=== PATIENT | female | born 1950 | race African-American/Black ===

== ENCOUNTER 2016-09-01 13:31 | Inpatient (IN) | payer OTHER ==
[~2016-09-01] VITALS: Ht 165.1 cm; Wt 123.6 kg
[2016-09-01] VITALS (25 sets, daily range): BP systolic 84–165; BP diastolic 45–141
--- NOTE | ~2016-09-01 | HC ---
[facility] [place] [address] CONSULTATION Name: TOY WELDON Room #: 243-P ADM IN M.R.#: [id number] Admission: 09/01/16 Attend Phys: Ismael Meyers Discharge: Date of : 54 Report #: [id number] THIS REPORT FOR: //name// CC: Jose Britt [facility] physician/PCP DATE OF SERVICE: 09/01/2016 REFERRING PROVIDER: Jose Britt MD REASON FOR CONSULTATION: Respiratory failure. CHIEF COMPLAINT: Altered mental status. HISTORY OF PRESENT ILLNESS: Our group was asked to evaluate this patient while hospitalized at [facility] in the ICU. She was seen in the ICU this evening. She is unable to give any history due to being on the mechanical ventilator and being unresponsive. The family immediately available at this time and scant records available from the emergency department. Apparently a 65-year-old woman who was brought to our emergency department from [facility] with altered mental status. Currently has also recently been started on hemodialysis. Has a tunneled right-sided chest catheter for hemodialysis, unclear how long that has been present, the underlying etiology of it. Currently, has also history of cerebrovascular accident with some right-sided weakness again presented with altered mental status in the emergency department. A CT scan of the chest revealed only some posterior basilar infiltrates and/or atelectasis. This appeared to be scant in nature. CT of the head was unrevealing for any acute process, although findings of old infarct noted. She has been in the ICU and poorly responsive despite no sedating medications at this time. ALLERGIES: METFORMIN. CURRENT MEDICATIONS: As an outpatient include armodafinil, aspirin, atorvastatin, carvedilol, DuoNebs, insulin, Keppra, lisinopril, midodrine, folic acid, Renvela, tamsulosin, Zoloft. PAST MEDICAL HISTORY: 1. Cerebrovascular accident with some right hemiparesis. 2. History of end-stage kidney disease, on hemodialysis. 3. Probable seizure disorder. 4. Hypertension. SOCIAL HISTORY: Unobtainable due to current status. [facility] [address] [place] [address] CONSULTATION Name: TOY WELDON Room #: 243-P [facility] IN .R.#: [id number] Admission: 09/01/16 Attend Phys: Ismael Meyers Discharge: Date of : 54 Report #: [id number] FAMILY HISTORY: Unobtainable due to current status. REVIEW OF SYSTEMS: Unobtainable due to her current status. PHYSICAL EXAMINATION: VITAL SIGNS: Temperature is 38.1, pulse 130s, respiratory rate 18, blood pressure 88/45. GENERAL: This is an obese, elderly black female, unresponsive. ENT: Endotracheal tube in place. CHEST: Reveals a right-sided Port-A-Cath as well as a tunneled right-sided catheter for dialysis, left IJ triple lumen of it. LUNGS: Relatively clear. No wheezes or crackles noted. CARDIOVASCULAR: Heart was regular. No murmurs noted. ABDOMEN: Soft, nontender, no masses. EXTREMITIES: Warm with no significant edema. LABORATORY DATA: CT scan as described. Marked elevation of the left hemidiaphragm also appreciated. White blood cell count was 9.7, hemoglobin 8, hematocrit 25, platelet count 129. Sodium 132, potassium 4.5, chloride 100, bicarbonate 27, BUN 29, creatinine 6.1, glucose 106, troponin is normal. IMPRESSION: 1. Altered mental status of unclear etiology. Cerebrovascular accident should still be considered in the differential diagnosis. Would also consider the possibility of early sepsis. She has multiple potential sources including pneumonia or line infections from her tunneled dialysis catheter, her Port-A-Cath. 2. Possible gastrointestinal bleed, coffee ground appearing substance coming from orogastric tube as well as low hemoglobin on admission noted. Would repeat hemoglobin and follow. 3. Anemia may be related to #2 above or underlying renal failure. 4. Chronic renal insufficiency, unclear how long she had been on hemodialysis. 5. Acute respiratory failure, likely due to altered mental status. Adequate support on current ventilator settings with good minute volume. 6. History of hypertension. SUGGEST: 1. Continue with current antibiotic therapy. 2. Consultation with Nephrology. 3. Bronchodilators. 4. Await cultures. 5. Repeat CBC to reevaluate anemia. 6. ICU care. 7. Additional recommendations to follow. [address] [address] CONSULTATION Name: WHITNEY AVILESYULIATOY Vinay Room #: 243-P [facility] IN M.R.#: [id number] Admission: 09/01/16 Attend Phys: Ismael Meyers Discharge: Date of : 54 Report #: [id number] Thank you for requesting our suggestions. <ELECTRONICALLY SIGNED> By: Lionel Velazquez MD 09/04/16 1434 2131 0040 Lionel Velazquez MD /nt
--- NOTE | ~2016-09-01 | P ---
[facility] [place] [address] PROCEDURE REPORT Name: TOY WELDON Room #: 243-P ADM IN M.R.#: [id number] Admission: 09/01/16 Attend Phys: Ismael Meyers Discharge: Date of : 54 Report #: [id number] THIS REPORT FOR: //name// CC: Jose Britt [facility] physician/PCP Hayden Red MD DATE OF SERVICE: 09/02/2016 PROCEDURE PERFORMED: Upper endoscopy. HISTORY OF PRESENT ILLNESS: The patient is a 65-year-old female who is living in a half-way, who apparently had altered mental status. She is currently in the ICU on a ventilator with pressure support. OG tube was placed last night with bright red blood aspirated, nursing reported approximately 200 mL. Plan is for emergent upper endoscopy. The patient is hypertensive and she is septic with blood culture being positive. She is on pressure support at this time and is being sedated with propofol. DESCRIPTION OF PROCEDURE: The procedure needed be done emergently. I was unable to obtain consent from her daughter this morning. The procedure was performed in the ICU. Again, the patient is already sedated on propofol at this time. Her G-tube was removed. Next, using a standard Fujinon upper endoscope, the scope was placed in the patient's mouth and advanced under direct vision through the esophagus, stomach and into the second portion of the duodenum. The esophagus was normal throughout. The GE junction was normal. The fundus was normal. However, in the mid body, several linear ulcerations were noted as well as gastritis. There was no active bleeding, but the area was very friable. No visible vessels were seen. There was no blood within the stomach. The gastric antrum was normal. The pylorus was normal and patent. The duodenal bulb, first and second portion were all normal. I did not obtain biopsies today as it is unclear if the patient has been on recent anticoagulation therapy. At this point, a new OG was placed under endoscopic vision. The scope was then withdrawn, leaving the OG tube in place. The procedure was then terminated. The patient tolerated the procedure well. IMPRESSION: 1. Several linear gastric ulcers in the mid body of the stomach. I do not think this is secondary to NG trauma as the tube was just placed plus there were multiple areas as well as not having ulceration within the fundus. 2. Otherwise, normal upper endoscopy. [address] [address] PROCEDURE REPORT Name: TOY WELDON Room #: 243-P [facility] IN M.R.#: [id number] Admission: 09/01/16 Attend Phys: Ismael Meyers Discharge: Date of : 54 Report #: [id number] RECOMMENDATIONS: 1. Continue OG suction. 2. Continue PPI drip. 3. Continue to monitor hemoglobin closely. 4. We will recheck a stool H. pylori antigen test. Thank you for allowing me to participate in her care. <ELECTRONICALLY SIGNED> By: Mitesh Veloz MD 09/05/16 0829 1128 1213 Mitesh Veloz MD /nt
--- NOTE | ~2016-09-01 | H ---
[facility] [place] [address] HISTORY AND PHYSICAL Name: TOY WELDON Room #: 243-P ADM IN M.R.#: [id number] Admission: 09/01/16 Attend Phys: Ismael Meyers Discharge: Date of : 54 Report #: [id number] THIS REPORT FOR: //name// CC: Dakota Britt [facility] physician/PCP DATE OF SERVICE: 09/01/2016 HISTORY OF PRESENT ILLNESS: A 65-year-old female with history of stroke and renal failure, who was found to have altered mental status and was sent out of the shelter. She is a patient over at [place], has not been there that long, just a few days when they noted that she has had a change in status with increasing shortness of breath, lethargic. Really no other history from the patient. She then was sent here where intubation occurred. PAST MEDICAL HISTORY: Her past history is noteworthy for the right-sided weakness. She has renal failure. She has end-stage renal disease, on dialysis. History of seizure disorder. The rest of the history really is not available to me. PHYSICAL EXAMINATION: GENERAL: On examination, she is in the ICU, intubated, just had an EGD accomplished. She was lethargic. CHEST: Showed coarse breath sounds. CARDIOVASCULAR EXAMINATION: Showed a regular rate and rhythm. ABDOMEN: Soft and nontender. EXTREMITIES: Negative. ASSESSMENT AND PLAN: This is a 65-year-old female with history of stroke and end-stage renal disease who has altered mental status and respiratory failure. Etiology is most likely infectious. We will see what the study shows, but full support in the ICU is begun. By: 1121 1151 Dakota Britt MD /nt
--- NOTE | ~2016-09-01 | EKG ---
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 : 1950 Requested By: Vick Gar Order Number: [id number] MD: Audie Smith Measurements Intervals [place] Rate: 130 P: -66 ID: 128 QRS: -56 QRSD: 101 T: 67 QT: 331 QTc: 487 Interpretive Statements Sinus or ectopic atrial tachycardia left anterior hemiblock Poor precordial R wave progression No previous ECG available for comparison Electronically Signed On 09-02-2016 15:17:49 CDT by Audie Smith [email or web address] <ELECTRONICALLY SIGNED> By: Audie Smith MD, [facility] 09/02/16 1517 1257 1257 Audie Smith MD, FAC /EPI
--- NOTE | ~2016-09-01 | HC ---
[facility] [place] [address] CONSULTATION Name: TOY WELDON Room #: 243-P ADM IN M.R.#: [id number] Admission: 09/01/16 Attend Phys: Ismael Meyers Discharge: Date of : 54 Report #: [id number] THIS REPORT FOR: //name// CC: Dakota Britt [facility] physician/PCP HISTORY OF PRESENT ILLNESS: The patient is a 65-year-old -[place] woman residing in a local [facility] with history of renal failure, on chronic hemodialysis and past history of cerebrovascular accident who was found by nursing to have some altered mental status. She is brought to the Emergency Room and now in the ICU, intubated to protect her airways. Nursing reports one of her blood cultures been returned positive. All information on this patient is gathered from the review of records. PAST MEDICAL HISTORY: Cerebrovascular accident, right hemiparesis, renal failure, on hemodialysis through right-sided tunnel internal jugular dialysis catheter. She has a right-sided Port-A-Cath as well. Seizure disorder. FAMILY HISTORY: Unable to obtain. SOCIAL HISTORY: Unable to obtain. REVIEW OF SYSTEMS: Unable to obtain. DRUG ALLERGIES: METFORMIN. MEDICATIONS: The patient is currently on treatment with Levophed titration, vancomycin 750 mg post-hemodialysis 3 times weekly has received a loading dose of 2 grams of vancomycin in the Emergency Room yesterday, she is on p.r.n., ondansetron, pantoprazole 80 mg IV x 1, p.r.n. morphine sulfate. She has apparently received Zosyn 4.5 grams IV x 1 as well. PHYSICAL EXAMINATION: GENERAL: Obese woman and on mechanical ventilator, intubated through oral cavity. VITAL SIGNS: Temperature maximum since admission 100.5, pulse per minute, respirations 16-28 per minute, blood pressure 146/60, 86/44. She is also on Levophed drip. HEENT: Head normocephalic and atraumatic. Pupils small, reactive. Mouth: Unable to examine. NECK: Supple. CHEST: Right-sided Port-A-Cath, and tunneled dialysis catheter. LUNGS: Basilar crackles. HEART: S1, S2. No gallop. ABDOMEN: Obese, soft with left-sided colostomy, functioning properly, multiple surgical scars and abdomen. PELVIC AND RECTAL: Deferred. [facility] [address] [place] [address] CONSULTATION Name: TOY WELDON Room #: 243-P ADM IN .R.#: [id number] Admission: 09/01/16 Attend Phys: Ismael Meyers Discharge: Date of : 54 Report #: [id number] EXTREMITIES: No clubbing, cyanosis. NEUROLOGIC: Unable to evaluate. LABORATORY DATA: Sodium 132, potassium 4.5, BUN 29, creatinine 6.1, glucose 100. Liver enzymes normal, albumin admission 3.1, down to 2.8 g/dL today. WBC 11,400, hemoglobin 7.3 g/dL, platelets decreased today 134,000. White blood cell count differential yesterday revealed 78% segmented neutrophils, 16% lymphocytes. Urinalysis reveals specific gravity of 1.020, pH 7.5, 2+ protein, 2+ blood, positive nitrite. The microscopic exam revealed pyuria as well as bacteriuria. ABGs yesterday revealed pH 7.37, pCO2 44, pO2 220, bicarbonate 25. Lactate normal. These set of gases on FIO2 of 60%, tidal volume 500 and 5 of PEEP. MICROBIOLOGY DATA: Blood cultures were obtained on admission and one out of two samples revealed gram-positive cocci consistent with Staphylococcus species, the urine culture is pending at the time of this dictation. RADIOLOGY EVALUATION: CT scan of the head was obtained and revealed old infarcts with areas of nonspecific low density, possibly of chronic ischemic changes. CT scan of the chest PE protocol, limited study, atelectasis, infiltrate posteriorly in the lungs. Elevation left hemidiaphragm. Chest x-ray revealed left IJ catheter and development of increased atelectasis right lung. ASSESSMENT: 1. Altered mental status, undetermined etiology. 2. Rule out catheter sepsis. 3. History of cerebrovascular accident. 4. Renal failure on hemodialysis through a right-sided tunneled internal jugular venous catheter. 5. Morbid obesity. 6. Status post colostomy. SUGGESTIONS: Recommend continue treatment with vancomycin, Zosyn 2.25 grams IV every 8 hours. Streamline antibiotic regimen once culture results available. Dr. Britt thank you for requesting my suggestions. <ELECTRONICALLY SIGNED> By: Hayden Maciel MD 09/03/16 1136 0615 1025 Hayden Maciel MD /nt
--- NOTE | ~2016-09-01 | D ---
[facility] [place] [address] DISCHARGE SUMMARY Name: TOY WELDON Room #: 243-P ADM IN M.R.#: [id number] Admission: 09/01/16 Attend Phys: Ismael Meyers Discharge: Date of : 54 Report #: [id number] THIS REPORT FOR: //name// CC: Dakota Britt [facility] physician/PCP FINAL DIAGNOSES: 1. Sepsis. 2. Acute hypoxic respiratory failure. 3. End-stage renal disease. 4. Cerebrovascular disease. 5. Gastrointestinal bleed. 6. Complicated urinary tract infection. 7. Acute encephalopathy. HOSPITAL COURSE: The patient was admitted from the group home with altered mental status. She was diagnosed with a complicated UTI and sepsis. She developed hypoxic respiratory failure and required intubation. Please see those procedure and consultation notes. She was followed by multiple specialties. Ultimately, her situation stabilized and she was extubated. She failed a bedside swallow with Speech Therapy and they recommended alternative feedings until she was stronger participating with therapy. She received hemodialysis without incident. DISPOSITION: She will be transferred to [facility] facility for ongoing Dobhoff tube feeding, bedside hemodialysis, medical management of all her conditions and therapies. She will admit under the care of Dr. Jose Britt. I signed all the transfer orders and information. <ELECTRONICALLY SIGNED> By: Yovani De Los Santos MD 09/07/16 1434 1308 1349 Yovani De Los Santos MD /jorge
--- NOTE | ~2016-09-01 | HC ---
[facility] [place] [address] CONSULTATION Name: TOY WELDON Room #: 243-P ADM IN M.R.#: [id number] Admission: 09/01/16 Attend Phys: Ismael Meyers Discharge: Date of : 54 Report #: [id number] THIS REPORT FOR: //name// CC: Dakota Britt [facility] physician/PCP DATE OF SERVICE: 09/02/2016 ICU Critical Care Renal Consult REASON FOR CONSULTATION: End-stage renal disease and altered mental status. HISTORY OF PRESENT ILLNESS: This 65-year-old female was admitted from [facility] after developing acute mental status deterioration. She had a recent cerebrovascular accident and has been at [facility] for several weeks. Her mental status apparently deteriorated and she was transferred to the Emergency Room where she was promptly intubated for respiratory failure and airway protection. She was transferred to the Intensive Care Unit. She is maintained on Levophed at this time to support her blood pressure. PAST MEDICAL HISTORY: Remarkable for a cerebrovascular accident approximately 4 months ago. She has longstanding hypertension as well as a chronic seizure disorder. MEDICATIONS: On presentation include armodafinil, aspirin, Lipitor, carvedilol, DuoNeb, Levemir, Keppra, Zestril, ProAmatine, Nephro-Jeannette, Renvela, Flomax and Zoloft. ALLERGIES: Reported to METFORMIN. PERSONAL AND SOCIAL HISTORY, FAMILY HISTORY AND REVIEW OF SYSTEMS: Not obtainable at this time. PHYSICAL EXAMINATION: GENERAL: Reveals a well-developed, well-nourished, moderately obese female who is intubated, mechanically ventilated. She is sedated at this time. VITAL SIGNS: Blood pressure 129/61, pulse 101, temperature 99.1, respirations 14. SKIN: Warm and dry. There is no gross clubbing, cyanosis, edema or adenopathy. HEENT: The head is normocephalic and atraumatic. The sclerae are white. The pharynx is benign. There is an endotracheal tube in place. LUNGS: Lindquist reveal scattered rhonchi bilaterally. CARDIOVASCULAR: Reveals a regular rate and rhythm without rub. ABDOMEN: Soft and nontender, without palpable mass or organomegaly. NEUROLOGIC: Reveals the patient to be essentially unresponsive. She has not responded to painful stimuli at this time. [address] [address] CONSULTATION Name: TOY WELDON Vinay Room #: [address] [place] [address] IN M.R.#: [id number] Admission: 09/01/16 Attend Phys: Ismael Meyers Discharge: Date of : 54 Report #: [id number] LABORATORY STUDIES: Available at the time of consultation include sodium 139, potassium 3.8, chloride 104, CO2 27, BUN 34, creatinine 6.9, glucose 157, calcium 9.3. White blood cell count 11,400, hemoglobin 7.3, hematocrit 22.4, platelet count 134,000. Arterial blood gases on presentation, pH 7.37, pCO2 220, pCO2 44.2 on 60% FIO2 ventilator assisted. ASSESSMENT: 1. End-stage renal disease with satisfactory volume and metabolic parameters at this time for a patient with end-stage renal disease. She has no indications for acute dialysis at this point in time. 2. Altered mental status in the setting of suspected sepsis and respiratory insufficiency with recent cerebrovascular accident. Importantly, I do not believe that her renal dysfunction is contributing significantly to her altered mental status at this time and would see no benefit from emergent hemodialysis for this indication alone. 3. Diabetes mellitus. 4. Hypertension. 5. Status post recent cerebrovascular accident. 6. Respiratory insufficiency, post-intubation. 7. Likely sepsis with 1/2 blood cultures positive for Streptococcus species at this time. PLAN: We will provide the patient with aggressive medical support. Planned dialysis for the morning per her usual Saturday, Saturday, Saturday schedule. Please see orders. Critical care time 45 minutes. <ELECTRONICALLY SIGNED> By: Clint Red MD 09/03/16 1153 0806 1140 Clint Red MD /nt
--- NOTE | ~2016-09-01 | HC ---
[facility] [place] [address] CONSULTATION Name: TOY WELDON Room #: 243-P ADM IN M.R.#: [id number] Admission: 09/01/16 Attend Phys: Ismael Meyers Discharge: Date of : 54 Report #: [id number] THIS REPORT FOR: //name// CC: Jose Britt [facility] physician/PCP Andrea Red MD DATE OF SERVICE: 09/02/2016 HISTORY OF PRESENT ILLNESS: The patient is a 65-year-old female who is brought in from [facility] facility with altered mental status last evening. The patient has been on hemodialysis recently. She also apparently has a history of CVA with right-sided weakness. She is currently intubated and sedated in the ICU. I received a consult early this morning as the patient had an OG placed and bright red blood was aspirated away. There are no family members available at this time to obtain any further history and again the patient is sedated. Her hemoglobin on admission was 8.1. She has had several repeats. Her hemoglobin at this time is 7.3. She has been placed on Protonix drip. Her current OG aspirate is somewhat dark bilious in nature. She is on pressor support at this time for hypertension. She also has grown out a gram positive cocci consistent with strep through her blood culture since admission. She is on IV antibiotics. PAST MEDICAL HISTORY: History of CVA, right hemiparesis, renal failure on hemodialysis, history of seizure disorder. REVIEW OF SYSTEMS: Unobtainable. FAMILY HISTORY: Unobtainable. ALLERGIES: METFORMIN. SOCIAL HISTORY: Unknown. MEDICATIONS: Here at this time: Zosyn, norepinephrine, vancomycin, Zofran, Protonix drip. PHYSICAL EXAMINATION: VITAL SIGNS: Temperature is 99.1, pulse 100, blood pressure 120/60, respiratory rate is 14, O2 sat is 98%. GENERAL: She is sedated. HEENT: Sclerae nonicteric. Oropharynx: OG is in place with dark aspirate. Endotracheal tube also in place. [facility] [address] [place] [address] CONSULTATION Name: TOY WELDON Room #: 243-P ADM IN .R.#: [id number] Admission: 09/01/16 Attend Phys: Ismael Meyers Discharge: Date of : 54 Report #: [id number] NECK: Supple. CARDIOVASCULAR: Regular rhythm, tachycardic at 105. CHEST: With decreased breath sounds bilaterally. ABDOMEN: Soft, nondistended, positive bowel sounds. EXTREMITIES: No cyanosis, clubbing or edema. LABORATORY DATA: Sodium 139, potassium 3.8, chloride 104, bicarbonate 27, BUN 34, creatinine 6.9, glucose 157, AST 23, total bilirubin 0.3, alkaline phosphatase 78, ALT is 20, total protein 7.4, albumin 2.8. INR 1.0. WBC is 11.4, hemoglobin 7.3, platelet count is 134. CT of the chest: Somewhat technically limited study because of the patient's respiratory motion, areas of atelectasis and mild infiltrate posteriorly in the lungs, elevation to the left diaphragm, indeterminate low density in the left kidney, possible artifact. CT scan of the head: Old infarcts with areas of nonspecific low density in the brain, possible chronic leukomalacia or chronic ischemic change. Subacute infarct is not excluded. No hemorrhage. ASSESSMENT AND PLAN: Upper gastrointestinal bleed, unable to obtain history at this time. The patient has had a recent cerebrovascular accident, unclear if she has been on recent anticoagulation therapy. She had approximately 200 mL out per nursing last evening of her OG. I would recommend proceeding with an upper endoscopy emergently today, especially as the patient has , although this may be from sepsis, need to rule out active upper gastrointestinal bleed. Would continue PPI drip. Thank you for allowing me to participate in her care. <ELECTRONICALLY SIGNED> By: Mitesh Veloz MD 09/05/16 0829 1125 1223 Mitesh Veloz MD /nt
[2016-09-01 13:48] LABS: BASOPHILS 0.7 % (0.0-2.0); EOSINOPHILS 0.6 % (0.0-3.0); HEMATOCRIT 24.8 % (37.0-47.0); HEMOGLOBIN 8.1 gm/dL (12.0-15.0); MCH 31.3 pg (26.0-34.0); MCHC 32.4 g/dL (28.0-37.0); MCV 96.6 fL (80.0-100.0); MONOCYTES 10.8 % (1.0-8.0); PLATELET COUNT 129 thou/uL (150-400); POLYS 71.9 % (36.0-66.0); RBC 2.57 mil/uL (4.20-5.00); RDW 17.5 % (10.5-14.5); WBC 9.7 thou/uL (4.0-11.0)
[2016-09-01 13:49] LABS: MANUAL DIFF NO
[2016-09-01 14:05] LABS: ANION GAP 5 mmol/L (7-16); BUN 29 mg/dL (7-18); CALCIUM 9.9 mg/dL (8.5-10.1); CHLORIDE 100 mmol/L (98-107); CO2 27 mmol/L (21-32); CREATININE 6.1 mg/dL (0.6-1.3); GLUCOSE 106 mg/dL (70-99); POTASSIUM 4.5 mmol/L (3.5-5.1); SODIUM 132 mmol/L (136-145)
[2016-09-01 14:09] LABS: ALBUMIN 3.1 g/dL (3.4-5.0); ALKALINE PHOSPHATASE 78 U/L (46-116); SGOT 23 U/L (15-37); SGPT 20 U/L (30-65); TOTAL BILIRUBIN 0.3 mg/dL (<0.1-1.0); TOTAL PROTEIN 7.4 g/dL (6.4-8.2); TROPONIN-I < 0.04 ng/mL (<0.04-0.07)
[2016-09-01] MEDS ORDERED: ARMODAFINIL150 MG PO (15:09)
[2016-09-01] MEDS ORDERED: ATORVASTATIN CA40 MG PO (15:10)
[2016-09-01] MEDS ORDERED: ASPIRIN325 PO (15:10)
[2016-09-01] MEDS ORDERED: COREG3.125 MG PO (15:10)
[2016-09-01 15:20] LABS: URINE BILIRUBIN NEGATIVE (Negative); URINE BLOOD 2+ (Negative); URINE COLOR YELLOW; URINE GLUCOSE-RANDOM* NEGATIVE (Negative); URINE KETONES NEGATIVE (Negative); URINE LEUKOCYTES-REFLEX 2+ (Negative); URINE PROTEIN (DIPSTICK) 2+ (Negative); URINE UROBILINOGEN 0.2 E.U./dl (0.2-1.0)
[2016-09-01] MEDS ORDERED: DUONEB 2.5-0.5 M3 ML INH (15:27)
[2016-09-01] MEDS ORDERED: LEVEMIR SUBQ (15:28)
[2016-09-01] MEDS ORDERED: LISINOPRIL20 MG PO (15:29)
[2016-09-01] MEDS ORDERED: KEPPRA 500 MG500 M2 PO (15:29)
[2016-09-01 15:30] LABS: CASTS None Seen /LPF (None Seen); CRYSTALS None Seen /LPF (None Seen); SQUAMOUS None Seen /LPF (0-3); URINE RBC 0-2 Rare /HPF (0-2)
[2016-09-01] MEDS ORDERED: MIDODRINE HCL 55 M1 PO (15:30)
[2016-09-01] MEDS ORDERED: RENAL VITAMIN0.8 MG PO (15:31)
[2016-09-01] MEDS ORDERED: RENVELA800 MG PO (15:32)
[2016-09-01] MEDS ORDERED: FLOMAX0.4 MG PO (15:33)
[2016-09-01] MEDS ORDERED: SERTRALINE HCL50 MG PO (15:37)
[2016-09-01 15:47] LABS: ABG SAMPLE TYPE ARTERIAL; BE(vivo) -0.3 mmol/L (-2 to +3); LACTATE 0.91 mmol/L (0.5-2.0); O2(CT) 12.2 mL/dL (15.0-23.0); O2Hb 98.4 % (92.0-98.0); PCO2 44.2 mmHg (35.0-45.0); PO2 220.4 mmHg (80.0-100.0); pH 7.371 (7.360-7.450); sO2 99.4 % (92.0-98.0); tCO2 26.4 mmol/L (24.0-30.0)
[2016-09-01 15:48] LABS: STICK SITE L.BRACHIAL
[2016-09-01 15:55] LABS: TIDAL VOLUME 500 ml
[2016-09-01 22:46] LABS: HEMATOCRIT 21.8 % (37.0-47.0); HEMOGLOBIN 7.2 gm/dL (12.0-15.0); MCH 31.4 pg (26.0-34.0); MCHC 33.1 g/dL (28.0-37.0); MCV 94.7 fL (80.0-100.0); RBC 2.3 mil/uL (4.20-5.00); RDW 17.3 % (10.5-14.5); WBC 7.8 thou/uL (4.0-11.0)
[2016-09-02] VITALS (91 sets, daily range): BP systolic 55–146; BP diastolic 16–78
[2016-09-02 01:50] LABS: HEMATOCRIT 22.1 % (37.0-47.0); HEMOGLOBIN 7.2 gm/dL (12.0-15.0); MCH 30.7 pg (26.0-34.0); MCHC 32.5 g/dL (28.0-37.0); MCV 94.6 fL (80.0-100.0); RBC 2.34 mil/uL (4.20-5.00); RDW 17.1 % (10.5-14.5); WBC 11.7 thou/uL (4.0-11.0)
[2016-09-02 03:01] LABS: PROTIME 10.4 Seconds (9.3-11.4)
[2016-09-02 05:44] LABS: HEMATOCRIT 22.4 % (37.0-47.0); HEMOGLOBIN 7.3 gm/dL (12.0-15.0); MCHC 32.6 g/dL (28.0-37.0); MCV 95.1 fL (80.0-100.0); RBC 2.36 mil/uL (4.20-5.00); WBC 11.4 thou/uL (4.0-11.0)
[2016-09-02 05:55] LABS: ALBUMIN 2.8 g/dL (3.4-5.0); CALCIUM 9.3 mg/dL (8.5-10.1); CREATININE 6.9 mg/dL (0.6-1.3); MAGNESIUM 1.8 mg/dL (1.8-2.4); PHOSPHORUS 4.1 mg/dL (2.5-4.9); POTASSIUM 3.8 mmol/L (3.5-5.1)
[2016-09-03] VITALS (99 sets, daily range): BP systolic 73–148; BP diastolic 26–89
[2016-09-03 04:34] LABS: MCH 31.2 pg (26.0-34.0); RBC 2.01 mil/uL (4.20-5.00)
[2016-09-03 04:36] LABS: MCHC 32.6 g/dL (28.0-37.0); MCV 95.7 fL (80.0-100.0); PLATELET COUNT 103 thou/uL (150-400); RDW 16.8 % (10.5-14.5); WBC 12.2 thou/uL (4.0-11.0)
[2016-09-03 04:51] LABS: ALBUMIN 2.5 g/dL (3.4-5.0); CALCIUM 9.1 mg/dL (8.5-10.1); CREATININE 7.8 mg/dL (0.6-1.3); PHOSPHORUS 4.8 mg/dL (2.5-4.9); POTASSIUM 3.8 mmol/L (3.5-5.1); TOTAL BILIRUBIN 0.4 mg/dL (<0.1-1.0); TOTAL PROTEIN 6.1 g/dL (6.4-8.2)
[2016-09-03 04:59] LABS: HEMOGLOBIN 6.3 gm/dL (12.0-15.0); MANUAL DIFF YES
[2016-09-03 05:00] LABS: HEMATOCRIT 19.3 % (37.0-47.0)
[2016-09-03 05:23] LABS: ABG COMMENT AC; ABG SAMPLE TYPE ARTERIAL; BE(vivo) -0.9 mmol/L (-2 to +3); LACTATE 1.04 mmol/L (0.5-2.0); PCO2 35.7 mmHg (35.0-45.0); PO2 86.2 mmHg (80.0-100.0); STICK SITE LRA; TIDAL VOLUME 500 ml; pH 7.426 (7.360-7.450); sO2 96.8 % (92.0-98.0)
[2016-09-03 05:48] LABS: ABSOLUTE NEUTROPHILS 9.9 thou/uL (1.4-8.2); TOTAL CELL COUNT 100
[2016-09-03 05:49] LABS: ANISOCYTOSIS 1+; HYPOCHROMASIA SLIGHT; LARGE PLATELETS OCCASIONAL
[2016-09-03 08:26] LABS: % SATURATION 17 % (20-39); IRON 39 ug/dL (50-170); TIBC 224 ug/dL (250-450); UIBC 185 ug/dL
[2016-09-04] VITALS (90 sets, daily range): BP systolic 71–144; BP diastolic 43–125
[2016-09-04 04:37] LABS: ALBUMIN 2.1 g/dL (3.4-5.0); HEMATOCRIT 24.3 % (37.0-47.0); HEMOGLOBIN 7.9 gm/dL (12.0-15.0); MCH 30.3 pg (26.0-34.0); MCHC 32.7 g/dL (28.0-37.0); MCV 92.8 fL (80.0-100.0); PHOSPHORUS 3.3 mg/dL (2.5-4.9); POTASSIUM 3.1 mmol/L (3.5-5.1); RBC 2.62 mil/uL (4.20-5.00); RDW 16.9 % (10.5-14.5); WBC 13.2 thou/uL (4.0-11.0)
[2016-09-04 04:39] LABS: CREATININE 4.5 mg/dL (0.6-1.3)
[2016-09-04 11:18] LABS: ABG SAMPLE TYPE ARTERIAL; BE(vivo) 0.6 mmol/L (-2 to +3); HCO3 25.6 mmol/L (22.0-26.0); LACTATE 0.72 mmol/L (0.5-2.0); O2(CT) 12.8 mL/dL (15.0-23.0); O2Hb 98.6 % (92.0-98.0); PCO2 42.5 mmHg (35.0-45.0); PO2 154.5 mmHg (80.0-100.0); pH 7.397 (7.360-7.450); tCO2 26.9 mmol/L (24.0-30.0)
[2016-09-04 11:19] LABS: Pressure Support 8 cm H20; STICK SITE L.RADIAL; TIDAL VOLUME 525 ml
[2016-09-04 11:20] LABS: ABG COMMENT RSBI 30 / CPAP TRIAL
[2016-09-04 16:14] LABS: ABG SAMPLE TYPE ARTERIAL; BE(vivo) 0.8 mmol/L (-2 to +3); HCO3 26.2 mmol/L (22.0-26.0); O2(CT) 12.3 mL/dL (15.0-23.0); O2Hb 97.2 % (92.0-98.0); PO2 124.3 mmHg (80.0-100.0); pH 7.374 (7.360-7.450); sO2 98.4 % (92.0-98.0); tCO2 27.6 mmol/L (24.0-30.0)
[2016-09-04 16:15] LABS: ABG COMMENT NO COMPLICATIONS.; Face Shield 40 %; STICK SITE L.RADIAL
[2016-09-05] VITALS (90 sets, daily range): BP systolic 70–150; BP diastolic 46–104
[2016-09-05 04:43] LABS: HEMATOCRIT 23.3 % (37.0-47.0); HEMOGLOBIN 7.7 gm/dL (12.0-15.0); MCH 30.8 pg (26.0-34.0); MCHC 33.3 g/dL (28.0-37.0); MCV 92.6 fL (80.0-100.0); RBC 2.51 mil/uL (4.20-5.00); RDW 16.2 % (10.5-14.5); WBC 10.3 thou/uL (4.0-11.0)
[2016-09-05 04:52] LABS: ALBUMIN 2.1 g/dL (3.4-5.0); CALCIUM 9.1 mg/dL (8.5-10.1); CREATININE 5.7 mg/dL (0.6-1.3); PHOSPHORUS 4.8 mg/dL (2.5-4.9); POTASSIUM 3.2 mmol/L (3.5-5.1)
[2016-09-06] VITALS (99 sets, daily range): BP systolic 72–158; BP diastolic 42–115
[2016-09-06 05:10] LABS: HEMATOCRIT 23.2 % (37.0-47.0); HEMOGLOBIN 7.7 gm/dL (12.0-15.0)
[2016-09-07] VITALS (72 sets, daily range): BP systolic 82–140; BP diastolic 44–122
[2016-09-07 05:06] LABS: HEMATOCRIT 24.5 % (37.0-47.0); MCHC 32.7 g/dL (28.0-37.0); MCV 94.8 fL (80.0-100.0); RBC 2.59 mil/uL (4.20-5.00); RDW 15.9 % (10.5-14.5); WBC 8.3 thou/uL (4.0-11.0)
[2016-09-07 05:31] LABS: ALBUMIN 2.2 g/dL (3.4-5.0); CALCIUM 8.9 mg/dL (8.5-10.1); POTASSIUM 3.4 mmol/L (3.5-5.1)
[2016-09-07 05:43] LABS: CREATININE 4.6 mg/dL (0.6-1.3)
[2016-09-07] MEDS ORDERED: ZYVOX600 MG/300 IVPB (09:01)
[2016-09-07] MEDS ORDERED: MIDODRINE HCL 55 M1 PO (09:02)
[2016-09-07] MEDS ORDERED: HUMALOG100 UNIT/1 SUBQ (09:03)
[2016-09-07] MEDS ORDERED: PREVACID 15 MG15 M4 DISSOLVE (09:03)
== END 2016-09-07 19:57 | DRG 871 ==
LOC: ER 13:31 → ICU 15:13 → EROBS 15:13 → ICU 17:02
PROVIDERS: Emergency Medicine; Internal Medicine; Internal Medicine Gastroenterology; Internal Medicine Infectious Disease; Internal Medicine Nephrology; Internal Medicine Pulmonary Disease; Specialist
PROC: 5A1945Z Respiratory Ventilation, 24-96 Consecutive Hours (ICD-10-PCS; principal; 2016-09-01)
PROC: 02HV33Z Insertion of Infusion Device into Superior Vena Cava, Percutaneous Approach (ICD-10-PCS; 2016-09-01)
PROC: B548ZZA Ultrasonography of Superior Vena Cava, Guidance (ICD-10-PCS; 2016-09-01)
PROC: 0DJ08ZZ Inspection of Upper Intestinal Tract, Via Natural or Artificial Opening Endoscopic (ICD-10-PCS; 2016-09-02)
PROC: 0BH17EZ Insertion of Endotracheal Airway into Trachea, Via Natural or Artificial Opening (ICD-10-PCS; 2016-09-03)
PROC: 5A1D60Z (ICD-10-PCS; 2016-09-03)
DX: A41.9 Sepsis, unspecified organism (principal); J96.01 Acute respiratory failure with hypoxia; G93.40 Encephalopathy, unspecified; N18.6 End stage renal disease; R65.21 Severe sepsis with septic shock; N39.0 Urinary tract infection, site not specified; K92.2 Gastrointestinal hemorrhage, unspecified; I12.0 Hypertensive chronic kidney disease with stage 5 chronic kidney disease or end stage renal disease; N17.9 Acute kidney failure, unspecified; I69.951 Hemiplegia and hemiparesis following unspecified cerebrovascular disease affecting right dominant side; G40.909 Epilepsy, unspecified, not intractable, without status epilepticus; D64.9 Anemia, unspecified; E66.01 Morbid (severe) obesity due to excess calories; E11.22 Type 2 diabetes mellitus with diabetic chronic kidney disease; E78.5 Hyperlipidemia, unspecified; D69.6 Thrombocytopenia, unspecified; I95.9 Hypotension, unspecified; R33.9 Retention of urine, unspecified; Z88.8 Allergy status to other drugs, medicaments and biological substances; Z90.49 Acquired absence of other specified parts of digestive tract; Z79.899 Other long term (current) drug therapy; Z99.2 Dependence on renal dialysis
CPT/HCPCS: 10078; 27000; 32100; 85076

== ENCOUNTER 2016-11-14 20:03 | Inpatient (IN) | payer OTHER ==
[~2016-11-14] VITALS: Ht 170.2 cm; Wt 110.7 kg
--- NOTE | ~2016-11-14 | D ---
[facility] [place] [address] DISCHARGE SUMMARY Name: TOY BAKER Room #: 428-P [facility] IN M.R.#: [id number] Admission: 11/15/16 Attend Phys: Yovani De Los Santos MD Discharge: 11/20/16 Date of : 54 Report #: [id number] THIS REPORT FOR: //name// CC: Yovani De Los Santos FINAL DIAGNOSES: 1. Partial small-bowel obstruction. 2. End-stage renal disease. 3. Cerebrovascular disease. 4. Hypertension. 5. Anemia of chronic disease. HOSPITAL COURSE: The patient was admitted from the retirement with nausea and vomiting. A CT was obtained which suggested a partial small-bowel obstruction. She was placed on bowel rest and supportive measures. She received hemodialysis during the course of her stay. Gradually, her symptoms resolved. Follow up KUB was improved. Diet was advanced and she had no other interval complication. DISPOSITION: She will return to [facility]. I will follow her stay there. She will continue diet and activity as tolerated . <ELECTRONICALLY SIGNED> By: Yovani De Los Santos MD 11/20/16 1659 1402 1451 Yovani De Los Santos MD /nt
--- NOTE | ~2016-11-14 | H ---
[facility] [place] [address] HISTORY AND PHYSICAL Name: TOY BAKER Room #: 428-P ADM IN M.R.#: [id number] Admission: 11/15/16 Attend Phys: Yovani De Los Santos MD Discharge: Date of : 54 Report #: [id number] THIS REPORT FOR: //name// CC: Yovani De Los Santos DATE OF SERVICE: 11/15/2016 This is a patient well known to our service with end-stage renal disease who lives at [place], who had nausea and vomiting. HISTORY OF PRESENT ILLNESS: This is a patient well known to our service who has had end-stage renal disease for quite some time. She has had a massive stroke with right hemiparesis and has nausea and vomiting, but she is really not able to give me much in the way of history. PAST MEDICAL HISTORY: Positive for the right hemiparesis and end-stage renal disease, has a history of seizure disorder. MEDICATIONS: List includes Keppra, atorvastatin, midodrine, modafinil, Nephro-Jeannette, Protonix, Sensipar, Zoloft. FAMILY HISTORY: Noncontributory. SOCIAL HISTORY: She lives at [place]. No smoking or alcohol. REVIEW OF SYSTEMS: Not able to be obtained. PHYSICAL EXAMINATION: GENERAL: Shows an ill appearing lady, but she is not acutely ill. She is able to converse with me. HEENT: Otherwise, negative. NECK: Supple, without thyromegaly or adenopathy. CHEST: Clear. CARDIOVASCULAR: Shows a regular rate and rhythm. ABDOMEN: Soft and nontender. EXTREMITIES: Showed no edema. NEUROLOGIC: Showed right hemiparesis. ASSESSMENT AND PLAN: This is a patient, very debilitated who appears to have an ileus and will need dialysis and bowel rest. <ELECTRONICALLY SIGNED> By: Dakota Britt MD 11/17/16 0950 1406 1421 Dakota Britt MD /nt
--- NOTE | ~2016-11-14 | EKG ---
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 : 1950 Requested By: Adama Webster Order Number: [id number] MD: Andrea Maciel Measurements Intervals [place] Rate: 109 P: 230 KS: 151 QRS: 240 QRSD: 104 T: 92 QT: 354 QTc: 477 Interpretive Statements Ectopic atrial tachycardia, unifocal Left anterior fascicular block Anterolateral infarct, old ST elevation, consider inferior injury Baseline wander in lead(s) V6 No previous ECG available for comparison Electronically Signed On 11-15-2016 20:41:28 CDT by Andrea Maciel [email or web address] <ELECTRONICALLY SIGNED> By: Andrea Maciel MD 11/15/16 2041 2346 2346 Andrea Maciel MD /EPI
--- NOTE | ~2016-11-14 | EKG ---
[address] [address] ELECTROCARDIOGRAM REPORT Name: TOY BAKER Room #: 428-P ADM IN M.R.#: [id number] Admission: 11/15/16 Attend Phys: Yovani De Los Santos MD Discharge: Date of : 54 Report #: [id number] THIS REPORT FOR: //name// 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
--- NOTE | ~2016-11-14 | HC ---
[facility] [place] [address] CONSULTATION Name: TOY BAKER Room #: 428-P ADM IN M.R.#: [id number] Admission: 11/15/16 Attend Phys: Yovani De Los Santos MD Discharge: Date of : 54 Report #: [id number] THIS REPORT FOR: //name// CC: Yovani De Los Santos DATE OF SERVICE: 11/15/2016 ATTENDING PHYSICIAN: Yovani De Los Santos MD. REASON FOR CONSULTATION: End-stage renal disease. HISTORY OF PRESENT ILLNESS: The patient is known to our service after an admission at this hospital in August of this year. At that time, she had respiratory failure, VRE bacteremia, possible aspiration. She did well and after a 6-7 day admission, was transferred out. She stays at [facility] and has dialysis there. She is on 3 times weekly dialysis. She had profuse nausea and vomiting yesterday. She was admitted this morning. PAST MEDICAL HISTORY: She has had a very large CVA with right hemiparesis. She has end-stage renal disease. She has a previous colostomy, history of seizure disorder as well. HOME MEDICATIONS: As listed at [facility] include atorvastatin 40 mg daily, Keppra 500 mg b.i.d., midodrine 10 mg before dialysis, modafinil 150 mg daily, Nephro-Jeannette 1 daily, Schneider p.r.n., NovoLog insulin, Protonix 40 mg daily, Sensipar 30 mg daily, Zoloft 50 mg daily. FAMILY HISTORY: Please see old charts. SOCIAL HISTORY: Stays at [facility], has a daughter who is involved. REVIEW OF SYSTEMS: Cannot be taken due to her aphasia. PHYSICAL EXAMINATION: GENERAL: This is a chronically ill-appearing woman. She is awake and alert, sort of indicate responses. SKIN: Unremarkable. SKELETAL: Shows to be well developed, well nourished, but very obese. HEENT: Extraocular movements are full. Vision appears intact. Hearing appears intact. Mucous membranes are moist. Buccal mucosa is benign. NECK: Supple. CHEST: Shows diminished breath sounds at the bases in supine position. HEART: Regular. ABDOMEN: Completely soft and nontender today. Bowel sounds present. Left [facility] [address] [place] [address] CONSULTATION Name: TOY BAKER Room #: 428-P ADM IN .R.#: [id number] Admission: 11/15/16 Attend Phys: Yovani De Los Santos MD Discharge: Date of : 54 Report #: [id number] EXTREMITIES: Show no edema. NEUROLOGIC: Shows a dense right hemiparesis, right facial and fairly complete aphasia. LABORATORY DATA: Includes hemoglobin of 9.5, platelets of 193. Creatinine 3.8, potassium of 4.2. ASSESSMENT AND PLAN: 1. End-stage renal disease. Will continue on 3 times weekly dialysis. Will dialyze today. Fluid volume status looks pretty good. Potassium is reasonably good. In general, conservative dialysis today. 2. Profuse nausea and vomiting seem to be better. 3. Acute cerebrovascular accident with dense right hemiparesis and aphasia. 4. Colostomy. 5. Diabetes mellitus. 6. Seizure disorder, on Keppra. <ELECTRONICALLY SIGNED> By: Clint Red MD 11/19/16 1012 1033 1558 Matthew Magallanes MD /nt
[~2016-11-14 20:03] MED LIST: ARMODAFINIL150 MG PO; ASPIRIN325 PO; ATORVASTATIN CA40 MG PO; COREG3.125 MG PO; DUONEB 2.5-0.5 M3 ML INH; FLOMAX0.4 MG PO; HUMALOG100 UNIT/1 SUBQ; KEPPRA 500 MG500 M2 PO; LEVEMIR SUBQ; LISINOPRIL20 MG PO; MIDODRINE HCL 55 M1 PO; PREVACID 15 MG15 M4 DISSOLVE; RENAL VITAMIN0.8 MG PO; RENVELA800 MG PO; SERTRALINE HCL50 MG PO; ZYVOX600 MG/300 IVPB
[2016-11-14 20:04] VITALS: BP 120/68
[2016-11-14 21:38] LABS: ABSOLUTE NEUTROPHILS 8.5 thou/uL (1.4-8.2); BASOPHILS 0.5 % (0.0-2.0); EOSINOPHILS 0.7 % (0.0-3.0); HEMATOCRIT 29.5 % (37.0-47.0); HEMOGLOBIN 9.5 gm/dL (12.0-15.0); LYMPHOCYTES 15.5 % (24.0-44.0); MANUAL DIFF NO; MCH 30.3 pg (26.0-34.0); MCHC 32.2 g/dL (28.0-37.0); MCV 94.1 fL (80.0-100.0); MONOCYTES 9.3 % (1.0-8.0); PLATELET COUNT 193 thou/uL (150-400); RBC 3.14 mil/uL (4.20-5.00); RDW 17.9 % (10.5-14.5); WBC 11.5 thou/uL (4.0-11.0)
[2016-11-14 21:59] LABS: ANION GAP 11 mmol/L (7-16); BUN 15 mg/dL (7-18); CALCIUM 8.7 mg/dL (8.5-10.1); CHLORIDE 102 mmol/L (98-107); CO2 24 mmol/L (21-32); CREATININE 3.8 mg/dL (0.6-1.0); GLUCOSE 124 mg/dL (74-106); POTASSIUM 4.2 mmol/L (3.5-5.1); SODIUM 137 mmol/L (136-145)
[2016-11-14 22:10] LABS: ALBUMIN 3.1 g/dL (3.4-5.0); ALKALINE PHOSPHATASE 97 U/L (46-116); DIRECT BILIRUBIN < 0.1 mg/dL (<0.1-0.3); NT-PRO BRAIN NAT PEPTIDE 1256 pg/mL (<300); SGOT 34 U/L (15-37); SGPT 15 U/L (30-65); TOTAL BILIRUBIN 0.4 mg/dL (<0.1-1.0); TOTAL PROTEIN 7.5 g/dL (6.4-8.2); TROPONIN-I < 0.04 ng/mL (<0.04-0.07)
[2016-11-15] MEDS ORDERED: ASPIRIN325 PO (00:16)
[2016-11-15] MEDS ORDERED: ATORVASTATIN CA40 MG PO (00:16)
[2016-11-15] MEDS ORDERED: COLACE100 MG PO (00:17)
[2016-11-15] MEDS ORDERED: DUONEB 2.5-0.5 M3 ML INH (00:17)
[2016-11-15] MEDS ORDERED: KEPPRA 500 MG500 M1 PO (00:18)
[2016-11-15] MEDS ORDERED: MICONAZOLE5 GM MC (00:18)
[2016-11-15] MEDS ORDERED: MIDODRINE HCL 55 M1 PO (00:19)
[2016-11-15] MEDS ORDERED: MODAFINIL100 MG PO (00:19)
[2016-11-15] MEDS ORDERED: HYDROCODONE-AP1 EAC6 PO (00:20)
[2016-11-15] MEDS ORDERED: MULTI VITAMIN1 EACH PO (00:20)
[2016-11-15] MEDS ORDERED: NOVOLOG100 UNIT/1 SUBQ (00:21)
[2016-11-15] MEDS ORDERED: SENNA8.6 MG PO (00:22)
[2016-11-15] MEDS ORDERED: PROTONIX40 M1 PO (00:22)
[2016-11-15] MEDS ORDERED: SENSIPAR 30 MG30 M1 PO (00:22)
[2016-11-15] MEDS ORDERED: SERTRALINE HCL50 MG PO (00:23)
[2016-11-15 02:03] VITALS: BP 92/55
[2016-11-15 02:30] VITALS: BP 107/57
[2016-11-15 04:54] VITALS: BP 127/83
[2016-11-15 07:59] VITALS: BP 112/57
[2016-11-15 16:03] VITALS: BP 120/64
[2016-11-15 20:00] VITALS: BP 128/65
[2016-11-16 04:00] VITALS: BP 119/68
[2016-11-16 04:07] LABS: CALCIUM 8.9 mg/dL (8.5-10.1); POTASSIUM 3.5 mmol/L (3.5-5.1)
[2016-11-16 04:08] LABS: HEMATOCRIT 29.9 % (37.0-47.0); HEMOGLOBIN 9.6 gm/dL (12.0-15.0); MCH 30.5 pg (26.0-34.0); MCHC 32.2 g/dL (28.0-37.0); MCV 94.7 fL (80.0-100.0); RBC 3.15 mil/uL (4.20-5.00); RDW 17.6 % (10.5-14.5); WBC 7.3 thou/uL (4.0-11.0)
[2016-11-16 07:18] VITALS: BP 108/60
[2016-11-16 15:20] VITALS: BP 97/72
[2016-11-16 20:00] VITALS: BP 119/87; BP 138/60
[2016-11-17 04:30] VITALS: BP 147/107
[2016-11-17 06:18] LABS: ALBUMIN 2.9 g/dL (3.4-5.0); CALCIUM 9.1 mg/dL (8.5-10.1); POTASSIUM 3.3 mmol/L (3.5-5.1)
[2016-11-17 06:20] LABS: CREATININE 4.5 mg/dL (0.6-1.0)
[2016-11-17 07:35] VITALS: BP 109/63
[2016-11-17 15:18] VITALS: BP 132/67
[2016-11-17 20:00] VITALS: BP 107/61; BP 90/46
[2016-11-17 23:55] VITALS: BP 90/62
[2016-11-18] VITALS (9 sets, daily range): BP systolic 87–125; BP diastolic 53–83
[2016-11-19 04:00] VITALS: BP 97/62
[2016-11-19 08:00] VITALS: BP 96/54
[2016-11-19 15:35] VITALS: BP 104/53
[2016-11-19 20:00] VITALS: BP 113/66
[2016-11-20 04:42] LABS: HEMATOCRIT 27.7 % (37.0-47.0); MCH 30.6 pg (26.0-34.0); MCHC 32.4 g/dL (28.0-37.0); MCV 94.5 fL (80.0-100.0); RBC 2.94 mil/uL (4.20-5.00); RDW 17.9 % (10.5-14.5); WBC 7.5 thou/uL (4.0-11.0)
[2016-11-20 04:56] LABS: ALBUMIN 2.8 g/dL (3.4-5.0); CALCIUM 8.5 mg/dL (8.5-10.1); PHOSPHORUS 4.7 mg/dL (2.5-4.9); POTASSIUM 4.1 mmol/L (3.5-5.1)
[2016-11-20 04:58] LABS: CREATININE 5.8 mg/dL (0.6-1.0)
[2016-11-20 05:04] VITALS: BP 100/52
[2016-11-20] MEDS ORDERED: PEPCID20 MG PO (10:10)
== END 2016-11-20 14:45 | DRG 388 ==
LOC: ER 20:03 → EROBS 11-15 00:51 → 4E 11-15 00:51
PROVIDERS: Internal Medicine Nephrology; Nurse Practitioner
DX: K56.7 Ileus, unspecified (principal); N18.6 End stage renal disease; E44.0 Moderate protein-calorie malnutrition; I69.351 Hemiplegia and hemiparesis following cerebral infarction affecting right dominant side; K56.60 Unspecified intestinal obstruction; I95.89 Other hypotension; E11.22 Type 2 diabetes mellitus with diabetic chronic kidney disease; G40.909 Epilepsy, unspecified, not intractable, without status epilepticus; D63.8 Anemia in other chronic diseases classified elsewhere; E66.01 Morbid (severe) obesity due to excess calories; Z68.38 Body mass index [BMI] 38.0-38.9, adult; I69.320 Aphasia following cerebral infarction; Z99.2 Dependence on renal dialysis; Z93.3 Colostomy status
CPT/HCPCS: 10084; 32100

== ENCOUNTER 2016-11-30 13:45 | Inpatient (IN) | payer OTHER ==
[2016-11-30] VITALS (29 sets, daily range): BP systolic 62–123; BP diastolic 11–112
[~2016-11-30] VITALS: Ht 162.6 cm; Wt 119.3 kg
--- NOTE | ~2016-11-30 | HC ---
[facility] [place] [address] CONSULTATION Name: TOY BAKER Room #: 421-P ADM IN M.R.#: [id number] Admission: 11/30/16 Attend Phys: Yovani De Los Santos MD Discharge: Date of : 54 Report #: [id number] THIS REPORT FOR: //name// CC: Yovani De Los Santos REASON FOR CONSULTATION: I was asked to evaluate concerning sepsis syndrome. HISTORY OF PRESENT ILLNESS: The patient was a 65-year-old who presents from [facility] where she undergoes hemodialysis 3 times a week. She has underlying history of diabetes, stroke, end-stage renal disease, right hemiparesis, seizure disorder and aphasia. She had acute onset of fever associated with hypertension and tachycardia while she was on dialysis. Brought in through the emergency room. She has remained tachycardic. Has received some fluid bolus. She did not complete her full dialysis course. The patient is aphasic but could not communicate some. She states she has malaise without any localizing symptoms. Denies any cough, sputum. Her colostomy has been functioning well. No new decubiti or rashes. PAST MEDICAL HISTORY: End-stage renal disease, diabetes. She got a colostomy. She got expressive aphasia to right hemiparesis following her stroke. ALLERGIES: METFORMIN. MEDICATIONS: As noted on her MAR, now on vancomycin, Zosyn, and micafungin. FAMILY HISTORY AND SOCIAL HISTORY: Otherwise, noncontributory. REVIEW OF SYSTEMS: As noted above, it is noted that she was hospitalized here 2 weeks ago with gastroenteritis type symptoms. No new diagnosis was established at that time. PHYSICAL EXAMINATION: VITAL SIGNS: Maximum temperature was 38.9 degrees. She has remained tachycardic. Blood pressure dropped down in the 90s systolic. GENERAL: She is alert and cooperative. She has a fairly dense right hemiparesis. She is obese. HEENT: She had scar from previous decubiti to her sacrum. No active lesions currently. She does have some skin breakdown in the perineal region. Eyes: Unremarkable. Mouth: Dentition in poor repair. NECK: Supple, no adenopathy. Right chest dialysis catheter. Tunnel was unremarkable. No purulent drainage. She has a right Port-A-Cath just inferior medial to her exit site. LUNGS: Clear. HEART: Regular without murmur. ABDOMEN: Soft, nontender, no hepatosplenomegaly or mass. Her colostomy in the left lower quadrant was unremarkable. EXTREMITIES: Unremarkable. [facility] [address] [place] [address] CONSULTATION Name: TOY BAKER Room #: 421-P ADM IN M.R.#: [id number] Admission: 11/30/16 Attend Phys: Yovani De Los Santos MD Discharge: Date of : 54 Report #: [id number] LABORATORY STUDIES: Creatinine is 2.9, lactate 2.1. Liver function test normal. Hemoglobin 10.2, white count 14.5, 93% segs, 5% lymphs, platelet count 168,000. Chest x-ray relatively clear. She did have some mild left lower lobe changes, but these were better from 2 weeks ago. Blood cultures are pending. Review of previous cultures in August of this year, she had VRE and coag negative staph bacteremia. She did have a left IJ tunneled catheter at one point in time, but now has a right IJ. Unclear how long this has been in place. IMPRESSION: A 65-year-old with previous stroke, end-stage renal disease, diabetes with septic shock that is responding to IV fluids. Source of her infection most likely will be central venous catheter infection, although I am awaiting further data regarding this. Would recommend continuing broad antibiotic coverage pending culture results. May need further imaging of her abdomen, but currently she is having no GI symptoms and her previous CAT scan was a little over 2 weeks ago, which showed no significant issues other than abdominal hernia. It does not appear that she has an incarcerated hernia at this point in time. The patient will remain in intensive care unit overnight and we will reassess following initial resuscitation and culture results. <ELECTRONICALLY SIGNED> By: Donnell Britt MD 12/04/16 1707 1935 2323 Donnell Britt MD /nt
--- NOTE | ~2016-11-30 | HC ---
[facility] [place] [address] CONSULTATION Name: TOY BAKER Room #: 421-P ADM IN M.R.#: [id number] Admission: 11/30/16 Attend Phys: Yovani De Los Santos MD Discharge: Date of : 54 Report #: [id number] THIS REPORT FOR: //name// CC: Yovani De Los Santos REASON FOR CONSULTATION: End-stage renal disease. REASON FOR PRESENTATION: Sent from the dialysis with mental status issues, hypotension. HISTORY OF PRESENT ILLNESS: The patient is not able to provide me with history as she has acute mental status issues. She is a 65-year-old who has been evaluated in August and November by my partner, Dr. Red and Dr. Magallanes. She suffers from end-stage renal disease and dialyzes every Saturday, Saturday and Saturday. She had a cerebrovascular accident in June of this year. This was complicated by hemiparesis, seizure disorder and aphasia. She presented to the emergency room after her dialysis treatment where she was found to be hypotensive and tachycardic. I was consulted to manage her end-stage renal disease issues. She has a right-sided IJ tunneled catheter. She grew gram positive cocci in her blood and ID was consulted accordingly. PAST MEDICAL HISTORY: 1. End-stage renal disease. 2. Status post cerebrovascular accident with significant aphasia and hemiparesis. 3. Colostomy. ALLERGIES: METFORMIN. FAMILY HISTORY: Unobtainable given the patient's mental status. PAST SURGICAL HISTORY: 1. Colostomy. 2. IJ tunneled catheter. REPORTED MEDICATIONS: 1. Atorvastatin. 2. Sensipar. 3. Modafinil. 4. Keppra SOCIAL HISTORY: She resides in the [facility]. No drug or alcohol abuse. REVIEW OF SYSTEMS: Completely unobtainable given the patient's mental status. PHYSICAL EXAMINATION: [facility] [address] [place] [address] CONSULTATION Name: TOY BAKER Room #: 421-P [facility] IN .R.#: [id number] Admission: 11/30/16 Attend Phys: Yovani De Los Santos MD Discharge: Date of : 54 Report #: [id number] VITAL SIGNS: She is lethargic, aphasic, blood pressure is 116/56, she did have a temperature up to 38.9 yesterday. HEAD AND NECK: Right IJ tunneled catheter. Unfortunately, with no sutures in the . CHEST: No crackles. CARDIOVASCULAR: Regular with no rub detected. ABDOMEN: Soft, nontender. EXTREMITIES: Lower extremities, +3 edema. Upper extremities, +3 edema. LABORATORY VALUES: Reviewed. White blood cell count 10.4. Platelets 143. Chemistry from today revealed a sodium 139, potassium of 4.2. Lactic acid was 2.1. IMAGING DATA: Reviewed. ASSESSMENT, IMPRESSION AND PLAN: 1. End-stage renal disease. 2. Gram positive cocci in blood, possibility related to her IJ tunneled catheter. 3. History of stroke. 4. Aphasia. 5. Seizure disorder. 6. Dialysis will be arranged every Saturday, Saturday and Saturday. 7. I discussed with the ER staff yesterday and empiric antibiotics were initiated in the Emergency Room where the patient received a dose of vancomycin and a dose of Zosyn. Currently, ID was consulted in managing her antibiotic. We will arrange for vancomycin every Saturday, Saturday and Saturday with dialysis. 8. She is not requiring any fluids at this point. Blood pressure seems to be stable. 9. Once we have a final identification of the microorganism then we will decide about the IJ tunneled catheter and what to do with it. As of this moment dressing is applied, however, no sutures over the . We will continue to follow along. <ELECTRONICALLY SIGNED> By: Clint Red MD 12/04/16 0607 0550 0743 Lori Keenan MD /nt
--- NOTE | ~2016-11-30 | HC ---
[facility] [place] [address] CONSULTATION Name: TOY BAKER Room #: 421-P [facility] IN M.R.#: [id number] Admission: 11/30/16 Attend Phys: Yovani De Los Santos MD Discharge: 12/11/16 Date of : 54 Report #: [id number] THIS REPORT FOR: //name// CC: Yovani De Los Santos DATE OF SERVICE: 12/05/2016 WOUND CARE CONSULTATION PERSONAL PHYSICIAN: Dr. De Los Santos. CHIEF COMPLAINT: Left thigh ulcer and right heel ulcer. HISTORY OF PRESENT ILLNESS: This is a 66-year-old black female who has a history of end-stage renal disease, on hemodialysis, who was at the dialysis center several days ago when she was found to be hypotensive and then upon arrival to the emergency department, the patient had a temperature of 102. The patient was diagnosed with sepsis and admitted to the hospital. The patient was noted on admission to have what appeared to be a deep tissue injury to her right heel, which has currently been treated with Betadine as well as having what appeared to be a moisture-associated dermatitis on her left inner thigh secondary to incontinence. I have been asked to assist in the care of these wounds. The patient denies any other associated ulcerations at this time. PAST MEDICAL HISTORY: End-stage renal disease, on hemodialysis; previous CVA with right-sided hemiparesis; seizure disorder and a colostomy. CURRENT MEDICATIONS: Multiple, I reviewed the patient's medication list. DRUG ALLERGIES: METFORMIN. SOCIAL HISTORY: The patient lives in a residential and is unable to give any other history besides that. FAMILY HISTORY: Unobtainable because of the patient's previous CVA and has expressive aphasia. REVIEW OF SYSTEMS: Unobtainable because of the patient's previous CVA and has expressive aphasia. PHYSICAL EXAMINATION: VITAL SIGNS: T-max is 37.3 and rest of the vitals are stable. GENERAL: This is an alert and oriented times 2, person and place, but not time, elderly black female, who appears much older than her stated age. HEENT: Normocephalic, atraumatic. Mucous membranes are dry. Pupils are round. Sclerae are white. [facility] [address] [place] [address] CONSULTATION Name: TOY BAKER Room #: 421-P [facility] IN M.R.#: [id number] Admission: 11/30/16 Attend Phys: Yovani De Los Santos MD Discharge: 12/11/16 Date of : 54 Report #: [id number] NECK: Shows no obvious JVD or masses. LUNGS: Slight diminished breath sounds heard throughout, but no rhonchi. CHEST: The patient has a tunneled catheter in her left anterior chest wall, which is somewhat tender to palpation. HEART: Regular with 2/6 systolic ejection murmur. ABDOMEN: Obese, soft, nontender with . EXTREMITIES: The patient has a right heel bogginess with mild ecchymotic changes and mild tenderness to palpation. There are no open ulcerations noted. Distal pulses are 1+ dorsalis pedis and posterior tibial. There is no evidence of any other ulcerations noted on the right foot or toes. On the left inner thigh is an area of maceration noted, consistent with moisture-associated dermatitis. The patient is incontinent of urine. This area is superficial, without any deeper and structural involvement and no signs of actual infection. Evaluation of the sacral gluteal area is without associated ulcerations. NEUROLOGIC: The patient has right-sided hemiparesis. LABORATORY DATA: White count 5.4, hemoglobin 8.5. Albumin is 2.3. IMPRESSION: 1. Left inner thigh moisture-associated dermatitis secondary to incontinence. 2. Right heel deep tissue injury, present on admission. 3. End-stage renal disease, on hemodialysis. 4. History of sepsis. 5. Protein-calorie malnutrition - severe with albumin of 2.3. PLAN: We will start Betadine to the right heel with heel protection on at all times on both heels for full protection. The patient will have placed between her inner thighs to protect against the moisture-associated dermatitis. We will try to maximize her oral protein supplementation as possible per her renal diet. We will continue to follow the patient very closely. Hemodialysis is being performed under the care of the venipuncturist and the patient is currently on IV antibiotics per the primary care medical team. <ELECTRONICALLY SIGNED> By: Richy Kinsey MD 12/14/16 1219 1813 0036 Richy Kinsey MD /nt
--- NOTE | ~2016-11-30 | H ---
[facility] [address] [place] [address] HISTORY AND PHYSICAL Name: TOY BAKER Room #: 238-P ADM IN M.R.#: [id number] Admission: 11/30/16 Attend Phys: Yovani De Los Santos MD Discharge: Date of : 54 Report #: [id number] THIS REPORT FOR: //name// CC: Yovani De Los Santos DATE OF SERVICE: 11/30/2016 CHIEF COMPLAINT: Low blood pressure. HISTORY OF PRESENT ILLNESS: The patient is a 65-year-old female with multiple medical problems who was sent to the Emergency Room from our dialysis center with low blood pressure. She chronically runs systolic in the 90s and takes midodrine in order to participate in hemodialysis; however, the facility noted she was "crashing" with low blood pressure; I do not have those exact results and appearing weak. By the time she arrived to the Emergency Room, she had a temperature of 102, blood pressures here been in the 90s systolic. She is also noted to be tachycardic with a heart rate in the 130s, appears to be an atrial tachycardia. She has had a previous admission earlier this year in August, due to aspiration pneumonia, and then had admission earlier this month for a partial small-bowel obstruction. PAST MEDICAL HISTORY: End-stage renal disease on hemodialysis. She has right upper chest hemodialysis catheter access, cerebrovascular accident with right hemiparesis, seizure disorder, she has a colostomy. PAST SURGICAL HISTORY: None. SOCIAL HISTORY: Is unknown. She has been a resident at the nursing center for about 3 months. ALLERGIES: Metformin. MEDICATIONS: DuoNeb, Midodrine 10 mg 4 times a day, Lipitor 40 mg, aspirin 325 mg, Keppra 500 mg twice a day, Zoloft 50 mg, Modafinil 150 mg, Pepcid 20 mg, Sensipar 30 mg daily. REVIEW OF SYSTEMS: She is awake and alert. She denies shortness of breath. She does have dysarthric speech from her prior stroke. PHYSICAL EXAMINATION: VITAL SIGNS: Temperature 38.9 on admit, now 37.1, pulse 133, respirations 10, blood pressure 88/57, O2 sat 100% on 2 liters nasal cannula. GENERAL: She is awake and alert, in no distress. HEAD AND NECK: Unremarkable. LUNGS: Clear anteriorly. HEART: Tachycardic, regular rhythm. [facility] [address] [place] [address] HISTORY AND PHYSICAL Name: TOY BAKER Room #: 238-P ADM IN M.R.#: [id number] Admission: 11/30/16 Attend Phys: Yovani De Los Santos MD Discharge: Date of : 54 Report #: [id number] ABDOMEN: Soft, obese, normoactive bowel sounds. There is a colostomy in the left lower quadrant flank. EXTREMITIES: No cyanosis, clubbing or edema. She has some dry discoloration to the right heel. SKIN: Her sacrum shows no open wounds. There appears to be some healing excoriated skin on the left upper inner thigh fold. NEUROLOGIC: She has right hemiparesis, dysarthric speech, which is chronic and unchanged in appearance. LABORATORY DATA: Reveals white count 14.5 with a left shift of 93% segs, potassium is 4.1, creatinine 2.9, lactic acid 2.1. Chest x-ray, shows no acute process. ASSESSMENT: 1. Sepsis syndrome. 2. End-stage renal disease. 3. Chronic hypotension. 4. Atrial fibrillation. 5. Cerebrovascular disease. 6. Chronic right hemiparesis. 7. Late effect stroke with dysarthria. 8. Colostomy in place. 9. Anemia of chronic disease. PLAN: She will be admitted to ICU with IV antibiotics and rate control for AFib. I have asked several consultants to assess her in regard to dialysis, AFib control and infection workup. My concern would be blood source for her fever. There is no report of diarrhea nor does there appear to be liquid stool in the ostomy bag, so C. diff would seem less likely and she is anuric from what I understand due to her renal failure. She has full code status and Lovenox for DVT prophylaxis has been ordered. <ELECTRONICALLY SIGNED> By: Yovani De Los Santos MD 12/01/16 0830 [id number] [id number] Yovani De Los Santos MD /nt
--- NOTE | ~2016-11-30 | TEE ---
[facility] [address] [address] TRANSESOPHAGEAL ECHOCARDIOGRAM Name: TOY BAKER Room #: 421-P ADM IN M.R.#: [id number] Admission: 11/30/16 Attend Phys: Ismael Mitchell Discharge: Date of : 54 Date of Service: 12/06/16 0900 Report #: [id number] THIS REPORT FOR: //name// APPROVED REPORT Study performed: 12/06/2016 06:55:19 EXAM: Comprehensive 2D, Doppler, and color-flow Echocardiogram Patient Location: CVL Room #: 421 Status: routine Other Information Study Quality: Good Indications Recurrent enteroccal bacteremia. Procedure After obtaining informed consent, patient underwent transesophageal echo in the CVL. Type of Sedation : Conscious Sedation Sedation was administered by Freeman Pham RN. Sedation was achieved intravenously with: Versed (5) Fentanyl (50) The ARACELY was performed without complications. Throughout the procedure, the blood pressure, pulse oximetry, cardiac rhythm, and rate were monitored. The patient tolerated the procedure without adverse effects. Recovery from conscious sedation was uneventful and vital signs were stable. Left Ventricle The left ventricle is normal size. There is normal LV segmental wall motion. There is no ventricular septal defect visualized. Left ventricular systolic function is normal. LVEF is 60%. Right Ventricle The right ventricle is normal size. The right ventricular systolic function is normal. Atria There is no mass or thrombus suspected in the left atrium or left atial appendage Small amount of right to left shunting consistent [facility] [address] [place] [address] TRANSESOPHAGEAL ECHOCARDIOGRAM Name: TOY BAKER Room #: 421-P ADM IN M.R.#: [id number] Admission: 11/30/16 Attend Phys: Ismael Mitchell Discharge: Date of : 54 Date of Service: 12/06/16 0900 Report #: [id number] with patent foramen ovale Linear structure in right atrium, likely representing a catheter. Catheter tip is shaggy, irregular bordered, possible thrombus vs vegetation with linear string-like mobile extension. 1cm oval density near RA/SVC junction suspicious for thrombus. Aortic Valve Aortic valve is calcified. No aortic regurgitation is present. There is no aortic valvular stenosis. Mitral Valve Nonspecific thickening of tip of anterior mitral leaflet. Round 1cm diameter densely calcified mass at posterior mitral annulus reprenting either dense mitral annular calcification or old calcified vegetation. Trace to mild mitral regurgitation. No evidence of mitral valve stenosis. Tricuspid Valve The tricuspid valve is normal in structure. Trace tricuspid regurgitation. Pulmonic Valve The pulmonary valve is normal in structure. Great Vessels The aortic root is normal in size. Pericardium There is no pericardial effusion. Critical Notification Physician Notified <Conclusion> Left ventricular systolic function is normal. LVEF is 60%. There is no mass or thrombus suspected in the left atrium or left atial appendage Linear structure in right atrium, likely representing a catheter. Catheter tip is shaggy, irregular bordered, possible thrombus vs vegetation with linear string-like mobile extension. 1cm oval density near RA/SVC junction suspicious for thrombus. Aortic valve is calcified. No aortic valvular stenosi or insufficiency Nonspecific thickening of tip of anterior mitral leaflet. Round 1cm diameter densely calcified mass at posterior mitral annulus [facility] [address] [place] [address] TRANSESOPHAGEAL ECHOCARDIOGRAM Name: TOY BAKER Room #: 421-P [facility] IN ..#: [id number] Admission: 11/30/16 Attend Phys: Ismael Mitchell Discharge: Date of : 54 Date of Service: 12/06/16899 Report #: [id number] reprenting either dense mitral annular calcification or old calcified vegetation. There is no pericardial effusion. <ELECTRONICALLY SIGNED> By: Audie Smith MD, FACC 12/06/16899 9 9 Audie Smith MD, FAC /INF
--- NOTE | ~2016-11-30 | EKG ---
[address] [place] [place] [address] ELECTROCARDIOGRAM REPORT Name: TOY BAKER Room #: 238-P ADM IN M.R.#: [id number] Admission: 11/30/16 Attend Phys: Yovani De Los Santos MD Discharge: Date of : 54 Report #: [id number] THIS REPORT FOR: //name// [facility] ED Test Date: 2016-11-30 Test Time: 13:50:24 Pat Name: TOY MAYER Department: Room: 238 Gender: F Security Compliance Engineer: Pamela PRETTY : 1950 Requested By: Andree Styles Order Number: [id number] MD: Audie Smith Measurements Intervals [place] Rate: 150 P: OR: QRS: -73 QRSD: 103 T: 76 QT: 363 QTc: 574 Interpretive Statements Supraventricular tachycardia Left anterior hemiblock Nonspecific intraventricular conduction delay Poor R wave progression Compared to ECG 11/14/2016 23:46:09 Heart rate has increased Electronically Signed On 12-01-2016 10:08:45 CDT by Audie Smith [email or web address] <ELECTRONICALLY SIGNED> By: Auide Smith MD, [facility] 12/01/16 1008 1350 1350 Audie Smith MD, [facility] /EPI
--- NOTE | ~2016-11-30 | 2DMMODE ---
[facility] [address] [place] [address] 2 D/M-MODE ECHOCARDIOGRAM Name: OLSON MORENOTOY Room #: 238-P ADM IN M.R.#: [id number] Admission: 11/30/16 Attend Phys: Ismael Mitchell Discharge: Date of : 54 Date of Service: 12/01/16 1332 Report #: [id number] THIS REPORT FOR: //name// APPROVED REPORT Study performed: 12/01/2016 09:42:02 EXAM: Comprehensive 2D, Doppler, and color-flow Echocardiogram Patient Location: Bedside Room #: 238 Status: on-call Other Information Study Quality: Adequate Technically limited study due to uncooperative patient. Indications Atrial Fibrillation Sepsis 2D Dimensions LVEF(%): 60.95 (>50%) IVSd: 10.15 (7-11mm) LVOT Diam: 21.00 (18-24mm) LVDd: 46.16 mm PWd: 10.32 (7-11mm) Ascending Ao: 36.14 (22-36mm) LVDs: 31.13 (25-40mm) Aortic Root: 32.29 mm Jacinto's LVEF: 60.95 % Volumes Left Atrial Volume (Systole) Single Plane 4CH: 48.55 mL Single Plane 2CH: 45.26 mL LA ESV Index: 23.00 mL/m2 Aortic Valve AoV Peak Jovanni.: 1.61 m/s AO Peak Gr.: 10.44 mmHg LVOT Max P.13 mmHg LVOT Max V: 1.02 m/s JORGE Vmax: 2.28 cm2 Mitral Valve E/A Ratio: 0.6 MV Decel. Time: 176.12 ms MV E Max Jovanni.: 0.73 m/s [facility] [address] [place] [address] 2 D/M-MODE ECHOCARDIOGRAM Name: TOY BAKER Room #: [facility] IN ..#: [id number] Admission: 11/30/16 Attend Phys: Ismael Mitchell Discharge: Date of : 54 Date of Service: 12/01/16 1332 Report #: [id number] MV A Jovanni.: 1.14 m/s MV PHT: 51.08 ms IVRT: 73.82 ms Pulmonary Valve PV Peak Jovanni.: 1.09 m/s PV Peak Gr.: 4.80 mmHg Left Ventricle The left ventricle is normal size. There is normal LV segmental wall motion. There is normal left ventricular wall thickness. Left ventricular systolic function is normal. The left ventricular ejection fraction is within the normal range. LVEF is 60-65%. Grade I - abnormal relaxation pattern. Right Ventricle The right ventricle is normal size. The right ventricular systolic function is normal. Atria The left atrium size is normal. Right atrium is borderline dilated. Aortic Valve The Aortic valve is sclerotic. No aortic regurgitation is present. There is no aortic valvular stenosis. Mitral Valve Moderate mitral annular calcification. There is no mitral valve regurgitation noted. No evidence of mitral valve stenosis. Tricuspid Valve The tricuspid valve is normal in structure. There is no tricuspid valve regurgitation noted. Pulmonic Valve The pulmonary valve is normal in structure. There is no pulmonic valvular regurgitation. Great Vessels The aortic root is normal in size. The inferior vena cava is not visualized. Pericardium There is no pericardial effusion. <Conclusion> [facility] [address] [place] [address] 2 D/M-MODE ECHOCARDIOGRAM Name: OLSONTOY KUMAR Room #: 238-P [facility] IN M.R.#: [id number] Admission: 11/30/16 Attend Phys: Ismael Mitchell Discharge: Date of : 54 Date of Service: 12/01/161331 Report #: [id number] Left ventricular systolic function is normal. There is normal LV segmental wall motion. LVEF is 60-65%. Grade I - abnormal relaxation pattern. The Aortic valve is sclerotic. No aortic regurgitation or stenosis Moderate mitral annular calcification. No mitral valve regurgitation noted. Pulmonary artery pressure could not be reliably ascertained There is no pericardial effusion. <ELECTRONICALLY SIGNED> By: Audie Smith MD, [facility] 12/01/161331 31 1332 Audie Smith MD, FACC /INF
[~2016-11-30 13:45] MED LIST changes: +COLACE100 MG PO; +HYDROCODONE-AP1 EAC6 PO; +KEPPRA 500 MG500 M1 PO; +MICONAZOLE5 GM MC; +MODAFINIL100 MG PO; +MULTI VITAMIN1 EACH PO; +NOVOLOG100 UNIT/1 SUBQ; +PEPCID20 MG PO; +PROTONIX40 M1 PO; +SENNA8.6 MG PO; +SENSIPAR 30 MG30 M1 PO
[2016-11-30 14:26] LABS: HEMATOCRIT 32.2 % (37.0-47.0); HEMOGLOBIN 10.2 gm/dL (12.0-15.0); MCHC 31.5 g/dL (28.0-37.0); MCV 95.1 fL (80.0-100.0); PLATELET COUNT 168 thou/uL (150-400); RBC 3.39 mil/uL (4.20-5.00); RDW 18.2 % (10.5-14.5); WBC 14.5 thou/uL (4.0-11.0)
[2016-11-30 14:28] LABS: MANUAL DIFF YES
[2016-11-30 14:35] LABS: CALCIUM 9.2 mg/dL (8.5-10.1); CREATININE 2.9 mg/dL (0.6-1.0); POTASSIUM 4.1 mmol/L (3.5-5.1)
[2016-11-30 14:53] LABS: ABSOLUTE NEUTROPHILS 13.5 thou/uL (1.4-8.2); ANISOCYTOSIS 2+; TOTAL CELL COUNT 100
[2016-11-30 14:54] LABS: POLYCHROMASIA OCCASIONAL
[2016-11-30 17:19] LABS: ALBUMIN 2.9 g/dL (3.4-5.0); DIRECT BILIRUBIN 0.1 mg/dL (<0.1-0.3); TOTAL BILIRUBIN 0.5 mg/dL (<0.1-1.0); TOTAL PROTEIN 7.5 g/dL (6.4-8.2)
[2016-12-01] VITALS (47 sets, daily range): BP systolic 76–144; BP diastolic 45–77
[2016-12-01 05:06] LABS: ALBUMIN 2.6 g/dL (3.4-5.0); CALCIUM 9.1 mg/dL (8.5-10.1); CREATININE 3.8 mg/dL (0.6-1.0); POTASSIUM 4.2 mmol/L (3.5-5.1); TOTAL BILIRUBIN 0.4 mg/dL (<0.1-1.0)
[2016-12-01 05:09] LABS: HEMOGLOBIN 9.5 gm/dL (12.0-15.0); RBC 3.15 mil/uL (4.20-5.00)
[2016-12-01 05:14] LABS: HEMATOCRIT 29.7 % (37.0-47.0); MCHC 31.9 g/dL (28.0-37.0); MCV 94.2 fL (80.0-100.0); PLATELET COUNT 143 thou/uL (150-400); RDW 18.4 % (10.5-14.5); WBC 10.4 thou/uL (4.0-11.0)
[2016-12-01 05:21] LABS: MANUAL DIFF YES
[2016-12-01 05:53] LABS: ABSOLUTE NEUTROPHILS 8.6 thou/uL (1.4-8.2); ANISOCYTOSIS 2+; TOTAL CELL COUNT 100; TOXIC GRANULATION SLIGHT
[2016-12-02] VITALS (24 sets, daily range): BP systolic 99–137; BP diastolic 58–87
[2016-12-02 06:28] LABS: ALBUMIN 2.2 g/dL (3.4-5.0); CALCIUM 8.6 mg/dL (8.5-10.1); CREATININE 4.9 mg/dL (0.6-1.0); PHOSPHORUS 4.4 mg/dL (2.5-4.9); POTASSIUM 4.4 mmol/L (3.5-5.1)
[2016-12-03 07:57] VITALS: BP 117/67
[2016-12-03 12:58] VITALS: BP 117/67
[2016-12-03 14:15] LABS: HEMATOCRIT 25.1 % (37.0-47.0); HEMOGLOBIN 7.9 gm/dL (12.0-15.0); MCH 29.9 pg (26.0-34.0); MCHC 31.6 g/dL (28.0-37.0); MCV 94.6 fL (80.0-100.0); RBC 2.65 mil/uL (4.20-5.00); RDW 18.3 % (10.5-14.5); WBC 5.5 thou/uL (4.0-11.0)
[2016-12-03 14:18] LABS: CALCIUM 8.6 mg/dL (8.5-10.1); CREATININE 5.6 mg/dL (0.6-1.0); POTASSIUM 4.6 mmol/L (3.5-5.1)
[2016-12-03 14:32] LABS: PROTIME 10.6 Seconds (9.3-11.4)
[2016-12-03 16:18] VITALS: BP 104/71
[2016-12-03 19:46] VITALS: BP 126/79
[2016-12-04 03:10] VITALS: BP 104/62
[2016-12-04 05:26] LABS: HEMATOCRIT 27.1 % (37.0-47.0); HEMOGLOBIN 8.6 gm/dL (12.0-15.0); MCH 29.9 pg (26.0-34.0); MCHC 31.8 g/dL (28.0-37.0); MCV 94.1 fL (80.0-100.0); RBC 2.88 mil/uL (4.20-5.00); RDW 18.4 % (10.5-14.5); WBC 5.9 thou/uL (4.0-11.0)
[2016-12-04 05:38] LABS: ALBUMIN 2.3 g/dL (3.4-5.0); CALCIUM 8.4 mg/dL (8.5-10.1); PHOSPHORUS 3.3 mg/dL (2.5-4.9); POTASSIUM 4.1 mmol/L (3.5-5.1)
[2016-12-04 05:43] LABS: CREATININE 3.2 mg/dL (0.6-1.0)
[2016-12-04 16:19] VITALS: BP 115/72
[2016-12-04 20:50] VITALS: BP 120/62
[2016-12-04 21:07] LABS: HEP B SURFACE Ab(ANTI-HBS Non Reactive (())
[2016-12-05 02:59] VITALS: BP 109/62
[2016-12-05 05:25] LABS: HEMATOCRIT 26.6 % (37.0-47.0); HEMOGLOBIN 8.5 gm/dL (12.0-15.0); MCH 29.9 pg (26.0-34.0); MCHC 31.8 g/dL (28.0-37.0); MCV 93.9 fL (80.0-100.0); RBC 2.83 mil/uL (4.20-5.00); RDW 18.5 % (10.5-14.5); WBC 5.4 thou/uL (4.0-11.0)
[2016-12-05 05:37] LABS: ALBUMIN 2.4 g/dL (3.4-5.0); CALCIUM 8.8 mg/dL (8.5-10.1); PHOSPHORUS 4.1 mg/dL (2.5-4.9); POTASSIUM 4.2 mmol/L (3.5-5.1)
[2016-12-05 05:39] LABS: CREATININE 4.4 mg/dL (0.6-1.0)
[2016-12-05 07:18] VITALS: BP 109/64
[2016-12-05 15:50] VITALS: BP 144/81
[2016-12-05 20:21] VITALS: BP 143/82
[2016-12-06 05:58] VITALS: BP 121/78
[2016-12-06 06:04] LABS: HEMATOCRIT 24.7 % (37.0-47.0); MCH 30.6 pg (26.0-34.0); MCHC 32.5 g/dL (28.0-37.0); MCV 93.9 fL (80.0-100.0); RBC 2.63 mil/uL (4.20-5.00); WBC 6.1 thou/uL (4.0-11.0)
[2016-12-06 06:21] LABS: ALBUMIN 2.3 g/dL (3.4-5.0); CALCIUM 8.6 mg/dL (8.5-10.1); CREATININE 5.3 mg/dL (0.6-1.0); PHOSPHORUS 4.6 mg/dL (2.5-4.9); POTASSIUM 4.4 mmol/L (3.5-5.1)
[2016-12-06 10:07] VITALS: BP 119/68
[2016-12-06 17:40] VITALS: BP 129/67
[2016-12-06 20:22] VITALS: BP 131/63
[2016-12-07 05:02] VITALS: BP 115/60
[2016-12-07 06:22] LABS: HEMATOCRIT 25.3 % (37.0-47.0); HEMOGLOBIN 7.9 gm/dL (12.0-15.0); MCH 29.9 pg (26.0-34.0); MCHC 31.2 g/dL (28.0-37.0); MCV 95.9 fL (80.0-100.0); RBC 2.64 mil/uL (4.20-5.00); RDW 18.5 % (10.5-14.5); WBC 6.5 thou/uL (4.0-11.0)
[2016-12-07 06:37] LABS: ALBUMIN 2.5 g/dL (3.4-5.0); CALCIUM 8.3 mg/dL (8.5-10.1); PHOSPHORUS 5.3 mg/dL (2.5-4.9); POTASSIUM 4.7 mmol/L (3.5-5.1)
[2016-12-07 06:38] LABS: CREATININE 6.3 mg/dL (0.6-1.0)
[2016-12-07 07:41] VITALS: BP 147/73
[2016-12-07 08:22] VITALS: BP 147/73
[2016-12-07 16:15] VITALS: BP 111/82
[2016-12-07 22:48] VITALS: BP 123/75
[2016-12-08 03:39] LABS: HEMATOCRIT 25.9 % (37.0-47.0); HEMOGLOBIN 8.3 gm/dL (12.0-15.0); MCH 30.2 pg (26.0-34.0); MCHC 32.3 g/dL (28.0-37.0); MCV 93.6 fL (80.0-100.0); RBC 2.76 mil/uL (4.20-5.00); RDW 18.1 % (10.5-14.5); WBC 8.7 thou/uL (4.0-11.0)
[2016-12-08 03:48] LABS: ALBUMIN 2.5 g/dL (3.4-5.0); CALCIUM 8.7 mg/dL (8.5-10.1); PHOSPHORUS 3.6 mg/dL (2.5-4.9); POTASSIUM 4.1 mmol/L (3.5-5.1)
[2016-12-08 03:58] LABS: CREATININE 3.7 mg/dL (0.6-1.0)
[2016-12-08 04:18] VITALS: BP 143/85
[2016-12-08 08:00] VITALS: BP 112/65
[2016-12-08 16:00] VITALS: BP 127/68
[2016-12-08 20:00] VITALS: BP 114/69
[2016-12-09 04:00] VITALS: BP 110/70
[2016-12-09 08:03] VITALS: BP 118/63
[2016-12-09 15:09] VITALS: BP 95/78
[2016-12-09 19:55] VITALS: BP 125/79
[2016-12-10 03:38] VITALS: BP 131/74
[2016-12-10 05:58] LABS: HEMATOCRIT 27.8 % (37.0-47.0); HEMOGLOBIN 8.6 gm/dL (12.0-15.0); MCHC 31.1 g/dL (28.0-37.0); MCV 96.3 fL (80.0-100.0); RBC 2.89 mil/uL (4.20-5.00); WBC 7.8 thou/uL (4.0-11.0)
[2016-12-10 06:21] LABS: ALBUMIN 2.7 g/dL (3.4-5.0); CALCIUM 8.6 mg/dL (8.5-10.1); PHOSPHORUS 4.4 mg/dL (2.5-4.9); POTASSIUM 4.1 mmol/L (3.5-5.1)
[2016-12-10 06:26] LABS: CREATININE 4.7 mg/dL (0.6-1.0)
[2016-12-10 09:02] VITALS: BP 116/81
[2016-12-10 17:14] VITALS: BP 113/72
[2016-12-10 20:00] VITALS: BP 120/77
[2016-12-11 04:31] VITALS: BP 106/58
[2016-12-11 06:58] LABS: HEMATOCRIT 25.9 % (37.0-47.0); HEMOGLOBIN 8.1 gm/dL (12.0-15.0); MCH 30.1 pg (26.0-34.0); MCHC 31.5 g/dL (28.0-37.0); MCV 95.8 fL (80.0-100.0); RBC 2.7 mil/uL (4.20-5.00); WBC 8.1 thou/uL (4.0-11.0)
[2016-12-11 07:08] LABS: ALBUMIN 2.7 g/dL (3.4-5.0); CALCIUM 8.7 mg/dL (8.5-10.1); PHOSPHORUS 5.5 mg/dL (2.5-4.9); POTASSIUM 4.6 mmol/L (3.5-5.1)
[2016-12-11 07:11] LABS: CREATININE 6.1 mg/dL (0.6-1.0)
[2016-12-11 08:08] VITALS: BP 106/58
[2016-12-11 08:12] VITALS: BP 106/65
[2016-12-11] MEDS ORDERED: ENOXAPARIN30 MG/0.1 SUBQ (09:49)
[2016-12-11 14:26] VITALS: BP 110/68
== END 2016-12-11 15:59 | DRG 871 ==
LOC: ER 13:45 → EROBS 16:08 → 4E 16:08 → ICU 16:08 → 4E 12-03 02:25
PROVIDERS: Emergency Medicine; Hospitalist; Internal Medicine Geriatric Medicine; Internal Medicine Nephrology; Specialist
PROC: 5A1D60Z (ICD-10-PCS; 2016-12-03)
PROC: 05PYX3Z Removal of Infusion Device from Upper Vein, External Approach (ICD-10-PCS; principal; 2016-12-04)
PROC: 0JPVXXZ Removal of Tunneled Vascular Access Device from Upper Extremity Subcutaneous Tissue and Fascia, External Approach (ICD-10-PCS; principal; 2016-12-04)
PROC: 02HV33Z Insertion of Infusion Device into Superior Vena Cava, Percutaneous Approach (ICD-10-PCS; 2016-12-07)
PROC: B5181ZA Fluoroscopy of Superior Vena Cava using Low Osmolar Contrast, Guidance (ICD-10-PCS; 2016-12-07)
PROC: B548ZZA Ultrasonography of Superior Vena Cava, Guidance (ICD-10-PCS; 2016-12-07)
DX: A41.9 Sepsis, unspecified organism (principal); N18.6 End stage renal disease; R65.21 Severe sepsis with septic shock; I69.351 Hemiplegia and hemiparesis following cerebral infarction affecting right dominant side; A40.9 Streptococcal sepsis, unspecified; D63.8 Anemia in other chronic diseases classified elsewhere; E11.22 Type 2 diabetes mellitus with diabetic chronic kidney disease; L89.90 Pressure ulcer of unspecified site, unspecified stage; G40.909 Epilepsy, unspecified, not intractable, without status epilepticus; S70.12XA Contusion of left thigh, initial encounter; X58.XXXA Exposure to other specified factors, initial encounter; Y93.89 Activity, other specified; Y99.8 Other external cause status; Z93.3 Colostomy status; Z88.8 Allergy status to other drugs, medicaments and biological substances; I69.320 Aphasia following cerebral infarction
CPT/HCPCS: 10183; 10203; 32100

== ENCOUNTER 2017-01-30 10:30 | Inpatient (IN) | payer OTHER ==
[2017-01-30] VITALS (7 sets, daily range): BP systolic 100–145; BP diastolic 44–129
[~2017-01-30] VITALS: Ht 162.6 cm; Wt 105.7 kg
--- NOTE | ~2017-01-30 | EKG ---
[address] [place] [address] ELECTROCARDIOGRAM REPORT Name: TOY BAKER Room #: 441-P ADM IN M.R.#: [id number] Admission: 01/30/17 Attend Phys: Yovani De Los Santos MD Discharge: Date of : 54 Report #: [id number] THIS REPORT FOR: //name// [facility] ED Test Date: 2017-01-30 Test Time: 11:36:58 Pat Name: TOY MAYER Department: Room: [facility] Gender: F Drapery Cutter: Pamela PRETTY : 1950 Requested By: Ricardo Arana Order Number: [id number] MD: Audie Smith Measurements Intervals [place] Rate: 107 P: 57 ID: [id number] QRS: -60 QRSD: 100 T: 75 QT: 339 QTc: 453 Interpretive Statements Sinus tachycardia Left anterior hemiblock Poor R wave progression Compared to ECG 11/30/2016 13:50:24 Myocardial infarct finding now present Supraventricular tachycardia no longer present Electronically Signed On 01-31-2017 8:58:09 CDT by Audie Smith [email or web address] <ELECTRONICALLY SIGNED> By: Audie Smith MD, [facility] 01/31/17 0858 1136 1136 Audie Smith MD, [facility] /EPI
--- NOTE | ~2017-01-30 | O ---
[facility] [place] [address] [place] [address] OPERATIVE REPORT Name: TOY BAKER Room #: 241-P ADM IN M.R.#: [id number] Admission: 01/30/17 Attend Phys: Yovani De Los Santos MD Discharge: Date of : 54 Report #: [id number] THIS REPORT FOR: //name// CC: Yovani De Los Santos DATE OF SERVICE: 02/06/2017 SERVICE: Orthopedics. FACILITY: [facility] SURGEON: Perez Camarena MD KEY ACCOUNT REPRESENTATIVE: None. PREOPERATIVE DIAGNOSES: 1. Severe peripheral arterial disease, right lower extremity. 2. Chronic nonhealing wounds and eschars, right foot. 3. Wet gangrene, right foot. 4. Knee flexion contracture and hip external rotation contracture. 5. Morbid obesity. POSTOPERATIVE DIAGNOSES: 1. Severe peripheral arterial disease, right lower extremity. 2. Chronic nonhealing wounds and eschars, right foot. 3. Wet gangrene, right foot. 4. Knee flexion contracture and hip external rotation contracture. 5. Morbid obesity. PROCEDURE: Right above knee amputation, increased difficulty secondary to morbid obesity and knee and hip flexion contractures. COMPLICATIONS: Intraoperative hypotension, treated by anesthesia. SPECIMENS: Right lower extremity. DRAINS: 1/8th-inch Hemovac. FINDINGS: 1. Near spontaneous amputation of the fifth toe with severe dry and wet gangrene of the foot. 2. Poor vascularity without palpable pulses and chronic skin changes associated with peripheral arterial disease all the way up to the level of the knee. 3. Knee flexion contracture as well as hip external rotation contracture. HISTORY AND INDICATIONS: The patient is a 66-year-old female with extensive [facility] [address] [place] [address] OPERATIVE REPORT Name: TOY BAKER Room #: 241-P ADM IN .R.#: [id number] Admission: 01/30/17 Attend Phys: Yovani De Los Santos MD Discharge: Date of : 54 Report #: [id number] medical history including major stroke leaving her right side hemiparetic and resulting in bedbound condition. She has diabetes and peripheral arterial disease as well as requires chronic hemodialysis. She presented to the Emergency Room with dry and wet gangrene of the foot. She initially showed signs of sepsis and was treated with antibiotics and was stabilized. A discussion was held with the family regarding optimal treatment due to the infection involving the bone and sepsis that was associated. Surgical treatment was recommended for medical purposes to decrease the risk of complications with the infection. The family declined at that time and wished to discuss amongst themselves and they took approximately 4 days to consider the various discussions that we had had and weigh the options. They felt like they are still in the mindset that aggressive management is their preferred option as well as what they believe she would prefer. As a result, they changed their mind regarding surgery and decided to move forward with amputation, so as to eliminate the infection that she was suffering from and hopefully perform just a single procedure for this condition. The risks, benefits, alternatives and indications were discussed in great detail with the family, in particular with the patient's son and he and the family gave full informed consent. The risks include but not limited to pain, bleeding, infection, injury to nerves or blood vessels, persistent pain despite surgical intervention, failure of the wound to heal appropriately, need for further surgery including revision as well as complications related to anesthesia such as stroke, heart attack, pulmonary complications, thromboembolic disease and . PROCEDURE IN DETAIL: After the right lower extremity was correctly identified in the preoperative holding area as the operative extremity, the patient was taken to the operating room and transferred to the operating table and general endotracheal anesthesia was induced without complication. Right lower extremity was prepped and draped in standard sterile fashion. Time-out procedure was performed. The leg was elevated and then the tourniquet was inflated to 250 mmHg for bleeding control. An Esmarch was not used. The skin flaps were then drawn on the skin and then the skin incision was made. Dissection was taken down to the muscle layer through the fat. There was extensive amount of adiposity, which actually required additional retractors as well as an additional set of hands available just to retract the redundant soft tissues in order to perform the procedure in an efficient and appropriate fashion. The dissection was taken down to the anterior aspect of the femur, which was identified and the periosteum was incised and then it was retracted proximally. The bone cut was made and was later tapered on the anterior side and then the femoral vessels were isolated and ligated and then the amputation continued through the posterior soft tissues and the leg was passed off as specimen. There was a significant amount of venous bleeding that was encountered while the tourniquet was up. The total tourniquet time was 66 minutes. This was sequentially coagulated with silk ties as well as cautery and then after the limb was removed, the tourniquet was let down and there was no significant [facility] [address] [place] [address] OPERATIVE REPORT Name: TOY BAKER Room #: 505-P [facility] IN .R.#: [id number] Admission: 01/30/17 Attend Phys: Yovani De Los Santos MD Discharge: Date of : 54 Report #: [id number] bleeding that occurred at this point. As bleeding might occur later and compromise wound healing, I still elected to place the Hemovac drain, which was placed in the deep layer adjacent to the bone and the deep fascial layer was closed with 0 Vicryl suture. Due to the flexion contractures and her bedridden nature as well as the adjacent decubitus ulcers, I elected to not perform adductor myodesis. After the deep layer was closed over the drain, the skin was closed with 2-0 Vicryl followed by skin parvin. At approximately the time of limb removal, the patient was demonstrating hypotension and so anesthesia moved forward with an arterial line, ordered blood for transfusion, and increased her anesthetic management with pressure support. She was stable at the conclusion of the procedure and she was transferred to hospital bed and taken to the Intensive Care Unit. There were no complications and all counts were recorded as correct. <ELECTRONICALLY SIGNED> By: Perez Camarena MD 02/07/17 1458 1239 1337 Perez Camarena MD /nt
--- NOTE | ~2017-01-30 | S ---
[facility] [place] [address] SURGICAL PATH RPT PROCEDURE Name: TOY BAKER Room #: 241-P ADM IN M.R.#: [id number] Admission: 01/30/17 Date of : 54 Discharge: Report #: [id number] Path Case #: [id number] PATHOLOGY REPORT COLLECTION DATE: 02/06/2017 RECEIVED DATE: 02/06/2017 SUBMITTING PHYS: Dr. Perez Camarena OTHER PHYS: Dr. Yovani De Los Santos SPECIMEN(S) RECEIVED: A.Right above knee amputation * * * * * * * * * * * * FINAL DIAGNOSIS: Leg, right, [id number]: - Skin with scattered areas of ulceration, necrosis, and acute abscess. - Underlying bone without significant inflammation. - Viable skin and subcutaneous tissue present at margins of excision. - Atrophic skeletal muscle present at margin of excision. - Arteries with marked occlusion by calcified atherosclerosis. ([facility]:; 02/08/2017) PATHOLOGIST: Fahad Turcios M.D. REPORT ELECTRONICALLY SIGNED BY: Fahad Turcios M.D. DATE/TIME: 02/08/2017 15:04 * * * * * * * * * * * * GROSS PATHOLOGY: Received in the fresh state designated "Ara, right above knee amputation", is a right leg amputated above the knee measuring 55 cm from the plantar surface of the foot to the femoral bone resection margin. An attached portion of femur measures about 15.5 cm in length and 2.8 cm in diameter at the femoral shaft. The foot measures 22 9 9 cm and includes all 5 toes. Skin overlying the extremity is mottled gonzales and rowley-brown. Anterior and posterior skin and soft tissue margins appear viable and are located about 7 and 10 cm inferior to the femoral bone resection margin respectively. Skin overlying the extremity has several areas of dark brown and black discoloration and necrosis involving the third, fourth and fifth digits together involving an area measuring about 4 3 cm in greatest dimensions. An area of ulceration involving the lateral aspect of the third digit measures 0.7 cm. Several other areas of dark brown black discoloration and necrosis involve the medial and lateral aspects of the foot, heel and lower leg. These areas vary [facility] [address] [place] [address] SURGICAL PATH RPT PROCEDURE Name: TOY BAKER Room #: [facility]-P ADM IN M.R.#: [id number] Admission: 01/30/17 Date of : 54 Discharge: Report #: [id number] Path Case #: [id number] from 2 up to 6 5.5 cm. Some of these regions are associated with adjacent areas of skin slippage and superficial ulceration. The deep soft tissues of the distal foot especially between the third, fourth and fifth digits have hemorrhagic areas and regions of partial liquefaction. All 5 toenails are thickened and distorted. Other regions skin has scattered hyperkeratotic rowley-brown areas and areas of skin slippage. Cancellous bone of the fourth and fifth digits contains areas of dark red-brown discoloration. Portions of skeletal muscle and there areas of fatty alteration in an atrophic appearance. Examination of the vessels reveals some scattered areas of mural calcification. The lumen of the posterior tibial artery at a point approximately 2 2 cm inferior to the femoral bone resection margin contains some red-brown possible thrombotic material. Tour Sales Representative sections are submitted as follows: En face sections of anterior and posterior skin and soft tissue margins A1 and A2 respectively, areas of necrosis and partial liquefaction of toes and distal foot and area of ulceration of third digit A3, other areas of necrosis of foot and leg A4, other regions of skin away from necrosis with hyperkeratotic and rowley-brown areasA5, middle and distal phalanges of fifth and fourth digits A 6 and A 7 respectively following decalcification, skeletal muscle posterior leg A8, and posterior tibial, peroneal and anterior tibialis vessels A9, A10 and A11 respectively. ([facility]; 02/07/2017) CLINICAL HISTORY: Pre-op diagnosis: Right foot gangrene Postop diagnosis: Same INITIAL CPT CODE(S): A; 84542 Professional services performed by [facility] at [address], [place] [address] Technical services performed by [facility] at [address] [place] [address], [facility] [address] [address]. [facility] [address] [place] [address] PHONE: [phone] DIRECTOR: Bertram Urena M.D. [address] [address] SURGICAL PATH RPT PROCEDURE Name: TOY BAKER Room #: 241-P ADM IN M.R.#: [id number] Admission: 01/30/17 Date of : 54 Discharge: Report #: [id number] Path Case #: [id number] * * * END OF REPORT * * *
--- NOTE | ~2017-01-30 | EKG ---
[address] [address] ELECTROCARDIOGRAM REPORT Name: TOY BAKER Room #: 240-P ADM IN M.R.#: [id number] Admission: 01/30/17 Attend Phys: Yovani De Los Santos MD Discharge: Date of : 54 Report #: [id number] THIS REPORT FOR: //name// [facility] Test Date: 2017-01-31 Test Time: 02:10:47 Pat Name: TOY MAYER Department: Room: 240 Gender: F Operation Specialist: linh : 1950 Requested By: Yovani De Los Santos Order Number: [id number] MD: Audie Smith Measurements Intervals [place] Rate: 141 P: -57 PA: 112 QRS: -68 QRSD: 98 T: 94 QT: 349 QTc: 535 Interpretive Statements Sinus tachycardia Left anterior hemiblock Nonspecific intraventricular conduction delay Poor R-wave progression Prolonged QT interval Compared to ECG 11/30/2016 13:50:24 significant change was found Electronically Signed On 02-01-2017 8:03:33 CDT by Audie Smith [email or web address] <ELECTRONICALLY SIGNED> By: Audie Smith MD, [facility] 02/01/17 0803 0210 021 Audie Smith MD, [facility] /EPI
--- NOTE | ~2017-01-30 | H ---
[facility] [place] [address] HISTORY AND PHYSICAL Name: TOY BAKER Room #: 441-P ADM IN M.R.#: [id number] Admission: 01/30/17 Attend Phys: Yovani De Los Santos MD Discharge: Date of : 54 Report #: [id number] THIS REPORT FOR: //name// CC: Yovani De Los Santos DATE OF SERVICE: 01/30/2017 CHIEF COMPLAINT: Pain in the right toes. HISTORY OF PRESENT ILLNESS: The patient is a 66-year-old female transferred from [facility] for evaluation of wounds on her toes. She was seen in IR today to deal with her tunneled dialysis catheter. The nursing staff at the facility called me with the report of some dark areas on tow toes on the right foot. I spoke to the ER physician who assessed her noting that there appeared to be necrotic infected areas of two toes and she is being admitted for treatment. She was hospitalized about 2 months ago and diagnosed with an endovascular infection, thought to be related to an infected hemodialysis catheter. This was subsequently changed multiple times and she just completed her IV course of antibiotics and returned to a nursing facility about 2 weeks ago. She has had 2 negative blood cultures drawn at [facility] last week with no signs of recurrent bloodstream infection. PAST MEDICAL HISTORY: End-stage renal disease, on hemodialysis, she has a Port-A-Cath in the right upper chest, cerebrovascular accident with chronic right hemiparesis, seizure disorder, colostomy, she has had a couple of admissions for thought to be aspiration pneumonia. PAST SURGICAL HISTORY: As above. FAMILY HISTORY: Unknown. SOCIAL HISTORY: She has been living at [facility] for about 6 months. She had previously been hospitalized I believe at [facility]. No known chronic alcohol or tobacco use. ALLERGIES: Metformin. MEDICATIONS: DuoNeb, midodrine, Lipitor, aspirin, Keppra, Zoloft, Modafinil, Pepcid, and Sensipar. REVIEW OF SYSTEMS: She is unable to give a review. She does look at me. OBJECTIVE: VITAL SIGNS: Temperature 37.2, pulse 113, respirations 17, blood pressure [address] [address] HISTORY AND PHYSICAL Name: TOY BAKER Room #: 441-P ADM IN M.R.#: [id number] Admission: 01/30/17 Attend Phys: Yovani De Los Santos MD Discharge: Date of : 54 Report #: [id number] 145/129, and O2 sat 99% on room air. GENERAL: She was alert and in no distress. HEAD AND NECK: Unremarkable. She is mainly nonverbal. LUNGS: Clear to auscultation. There is a tunneled dialysis catheter in the right upper chest, now a central line in the left chest. HEART: Tachycardic, regular. ABDOMEN: Soft, normoactive bowel sounds, colostomy. EXTREMITIES: No cyanosis, clubbing or edema. She has diminished movement of the right foot. There are 2 foul swelling necrotic dark fourth and fifth toes with scant bloody drainage. ASSESSMENT: 1. Gangrene toes of the right foot. 2. Suspect peripheral artery disease. 3. End-stage renal disease. 4. Cerebrovascular disease. 5. Late effect stroke with aphasia, right hemiparesis. 6. Recent endovascular infection, just completed IV antibiotics. 7. Seizure disorder. 8. Anemia of chronic disease. PLAN: She is to be admitted for evaluation of treatment for these related toes, concern is peripheral disease and may be embolic event. Doppler ultrasound will be obtained. I have asked Dr. Carver and Dr. Feliz Britt to see her along with the renal service to help manage dialysis during her stay. <ELECTRONICALLY SIGNED> By: Yovani De Los Santos MD 01/31/17 0858 1345 1508 Yovani De Los Santos MD /nt
--- NOTE | ~2017-01-30 | HC ---
[facility] [place] [address] CONSULTATION Name: TOY BAKER Room #: 217-P ADM IN M.R.#: [id number] Admission: 01/30/17 Attend Phys: Yovani De Los Santos MD Discharge: Date of : 54 Report #: [id number] THIS REPORT FOR: //name// CC: Yovani De Los Santos DATE OF SERVICE: 01/30/2017 DATE OF ADMISSION: 01/30/2017. ATTENDING PHYSICIAN: Dr. De Los Santos. REASON FOR CONSULTATION: End-stage renal disease and necrotic toes. HISTORY OF PRESENT ILLNESS: This 66-year-old patient well known to our service, previous major stroke with right hemiparesis and aphasia, developed an endovascular infection a couple of months ago with positive blood cultures that was persistent and was hospitalized at this hospital at that time. The infection was Enterococcus faecalis, but she also ruled out gram-negative Staph. She eventually had a dialysis catheter removed and then re-placed. Developed negative blood cultures on December 05. She was then sent to [facility] where she was for some time and now she is back at [facility]. She had been afebrile at [facility], had been felt to be free of infection, but her dialysis catheter did not work. She was sent to IR and while in IR, was noted that she had necrotic, very foul malodorous toes that also seemed to be causing increased lethargy and generalized ill-appearance so she is admitted. PAST MEDICAL HISTORY: She had the major stroke earlier this year. She has a colostomy. She has had pressure sores, seizure disorder, depressed mental status, aphasia, and end-stage renal disease, on dialysis. FAMILY HISTORY: Please see old charts. REVIEW OF SYSTEMS: Cannot be taken due to her mental status. SOCIAL HISTORY: She is living at [facility]. PHYSICAL EXAMINATION: GENERAL: This is a chronically ill-appearing woman. She does appear more lethargic than usual. VITAL SIGNS: Blood pressure is 100/50. SKIN: Unremarkable. SKELETAL: She is very obese. She has the fourth and fifth right toes which are necrotic and malodorous. She has the back of her right heel with an eschar as well. HEENT: Extraocular movements difficult to test due to poor cooperation. She has right facial palsy. [facility] [address] [place] [address] CONSULTATION Name: TOY BAKER Room #: 217-P [facility] IN M.R.#: [id number] Admission: 01/30/17 Attend Phys: Yovani De Los Santos MD Discharge: Date of : 54 Report #: [id number] NECK: Supple. CHEST: Diminished breath sounds. HEART: Regular but distant. ABDOMEN: Very obese, soft, nontender. She has a colostomy in place. EXTREMITIES: Again showing the necrotic toes and the right heel ulcer. NEUROLOGIC: She has complete hemiparesis on the right, and she is not moving her left leg at this time, although she does move her left arm. LABORATORY DATA: Hemoglobin is 9.8, white count 14.4. Sodium 148, potassium 4.9, chloride , bicarbonate 24, creatinine 10.2, BUN 59. ASSESSMENT AND PLAN: 1. End-stage renal disease. She has end-stage renal disease. She has not dialyzed since Saturday. Her catheter was not working. She got it replaced today. She is in need of dialysis. We will run a gentle treatment. Her blood pressure is well. We will have to order an ultrafiltration. 2. Necrotic toes on the right foot. There is clearly infection and malodorous appearance there. 3. Status post major stroke with right hemiparesis and aphasia. 4. Colostomy. 5. Diabetes mellitus. 6. Morbid obesity. 7. Recent enterococcal sepsis with probable line infection. <ELECTRONICALLY SIGNED> By: Matthew Magallanes MD 02/05/17 1154 1615 2252 Matthew Magallanes MD /nt
--- NOTE | ~2017-01-30 | HC ---
[facility] [address] CONSULTATION Name: TOY BAKER Room #: 240-P ADM IN M.R.#: [id number] Admission: 01/30/17 Attend Phys: Yovani De Los Santos MD Discharge: Date of : 54 Report #: [id number] THIS REPORT FOR: //name// CC: Yovani De Los Santos REASON FOR CONSULTATION: I was asked to evaluate concerning sepsis. HISTORY OF PRESENT ILLNESS: The patient was a 66-year-old with previous stroke and right hemiparesis, aphasia, who I had treated for an endovascular infection due to enterococcus. She received a prolonged course of IV antibiotic therapy including the ampicillin and gentamicin. Following completion of her treatment, she had her catheters exchanged. She returns now with nonfunctioning right chest catheter for dialysis. Following admission for catheter exchange, she has noticed to have gangrene of her right foot involving the fourth and fifth toes. She had an arterial study, which showed concern for popliteal occlusion. She has had no cough or sputum production. No nausea, vomiting or diarrhea. She now has a left IJ catheter and exchanged right chest dialysis catheter yesterday. She has been afebrile, but blood pressure has dropped and she has been more encephalopathic. She had received a fluid bolus, but has not improved with this. Currently, the patient was unable to give me any further details. REVIEW OF SYSTEMS: As noted above. PAST MEDICAL HISTORY: Stroke, colostomy, has seizure disorder, aphasia; end-stage renal disease, on dialysis. ALLERGIES: METFORMIN. MEDICATIONS: As noted on AUG, now on vancomycin and Zosyn. PHYSICAL EXAMINATION: VITAL SIGNS: Afebrile, blood pressure in the 70s systolic, heart rate 51, O2 saturation was 98% on room air. GENERAL: She was encephalopathic. Could not get her to answer any questions. She would arouse. She was obese. Right chest catheter site mild erythema. Left IJ catheter okay. LUNGS: Were clear. HEART: Was regular without murmur. ABDOMEN: Was obese, soft, did not appear tender. Ostomy was unremarkable. EXTREMITIES: The right lower extremity had gangrene of her fourth and fifth toes. Could not palpate any pulses in her foot. She did have some eschar and pressure ulcer over her heel. LABORATORY STUDIES: Blood cultures are negative to date. Hemoglobin 9.1, white count 14.1, platelet count 93,000. Ultrasound of the lower extremity showed possible occlusion of the popliteal artery. Chest x-ray, left lower lobe atelectasis. [address] [address] CONSULTATION Name: TOY BAKER Room #: [facility] IN [facility].#: [id number] Admission: 01/30/17 Attend Phys: Yovani De Los Santos MD Discharge: Date of : 54 Report #: [id number] IMPRESSION: A 66-year-old with septic shock. She has multiple comorbidities and is in critical condition. She has gangrene of her right foot, likely due to peripheral vascular obstruction, suspecting at the popliteal level. The patient also has had a recent enterococcal bacteremia which will be reevaluated with repeating cultures. She has end-stage renal disease and previous stroke with dense right hemiparesis and aphasia. Recommend ICU transfer. Discussed with IM and icu team. Treatment with IV fluids and vascular monitoring. We will continue with IV antibiotic therapy. We will need to discuss further with interventional radiology regarding further evaluation of her right foot. orthopedic surgery will need to evaluate for amputation-level to be determined. <ELECTRONICALLY SIGNED> By: Donnell Britt MD 02/01/17 0936 1148 1210 Donnell Britt MD /nt
--- NOTE | ~2017-01-30 | HC ---
[facility] [place] [address] CONSULTATION Name: TOY BAKER Room #: 217-P ADM IN M.R.#: [id number] Admission: 01/30/17 Attend Phys: Yovani De Los Sanots MD Discharge: Date of : 54 Report #: [id number] THIS REPORT FOR: //name// CC: Yovani De Los Santos PRIMARY PHYSICIAN: Yovani De Los Santos MD REFERRAL PHYSICIAN: Donnell Britt MD REASON FOR REFERRAL: Sepsis. HISTORY OF PRESENT ILLNESS: The patient is a 66-year-old -S[place]an female who was admitted for necrotic toes. She was felt to be septic with hypotension. A pulmonary critical care consultation was requested. The patient was seen in the ER yesterday where her dialysis catheter was found to be clotted. She was sent to the IR to declot the dialysis catheter. She was also found to have a necrotic, very malodorous toes. The patient was admitted for presumed necrotic toe infection along with sepsis. I am not able to obtain much history. The patient is aphasic following a large CVA. In the ICU, the patient's blood pressure systolic is around 80 to 70 mmHg. Saturation is adequate. PAST MEDICAL HISTORY: CVA with right-sided hemiparesis with aphagia, end-stage renal disease on hemodialysis, seizure disorder, and hypertension. Her CVA was early this year around June 2016. PAST SURGICAL HISTORY: As mentioned above. She has dialysis catheter placed. ALLERGIES: To METFORMIN, reactions unspecified. MEDICATIONS: From the facility are reviewed. This include Lipitor, Keppra, Sensipar, modafinil, aspirin, midodrine, Nephro, and Zoloft. FAMILY HISTORY: Noncontributory. SOCIAL HISTORY: Not obtainable. REVIEW OF SYSTEMS: As mentioned above, otherwise limited as the patient is aphasic. PHYSICAL EXAMINATION: GENERAL: She is awake, does not appear to be in distress. VITAL SIGNS: Temperature is 98.8 degrees Fahrenheit, pulse is 107, respiratory [facility] [address] [place] [address] CONSULTATION Name: TOY BAKER Room #: 217-P [facility] IN .R.#: [id number] Admission: 01/30/17 Attend Phys: Yovani De Los Santos MD Discharge: Date of : 54 Report #: [id number] rate is 20, blood pressure currently is 80/42 mmHg, and saturation is 98%. HEENT: Normocephalic, atraumatic. NECK: Supple without any lymphadenopathy or thyromegaly. CHEST: Breath sounds are fair due to poor effort. No obvious rales or wheezes. The right upper chest has the dialysis catheter noted. BREASTS: Deferred. ABDOMEN: Obese, soft, nontender, no organomegaly or masses felt. GENITOURINARY: Deferred. RECTAL: Deferred. EXTREMITIES: No edema or cyanosis. No clubbing noted. Necrotic toes are noted in the right 4th and 5th toes. LABORATORY DATA: Portable chest x-ray is clear. Left hemidiaphragm is elevated. Procalcitonin level is 2.07. Lactic acid was 0.9. EKG shows poor R-wave progression, left anterior dilma-block, no acute ischemic changes. Foot x-ray shows severe chronic changes involving the ankle on the left foot. Doppler ultrasound of the right lower extremity revealed decreasing arterial flows. Possible occlusion of the popliteal artery. Decreased flow in the peroneal artery noted. Sodium 142, potassium 3.7, chloride 105, CO2 of 27, BUN is 28, creatinine is 5.4, and glucose is 157. WBC 11,300, hemoglobin is 8.4, and platelets are reduced at 85,000. No bandemia noted. Albumin 1.9. Arterial blood gas revealed pH 7.41, pCO2 of 38, and pO2 of 72 on room air. IMPRESSION: 1. Severe sepsis in this 66-year-old -Samoan female. She is hypotensive. She has extensive wounds involving the sacral area, right ischial ulcer, deep tissue wounds involving the right posterior thigh and buttock, pressure ulcer also involving the right hip, gangrenous necrosis involving the right 4th and 5th toes, deep issue injury involving the right lateral ankle, right lateral lower leg, heel, foot, left heel and left ankle. 2. Cerebrovascular accident with right hemiparesis, expressive aphagia. 3. Generalized debility and weakness. 4. End-stage kidney disease, on hemodialysis. 5. Chronic seizure disorder. 6. . 7. Severe protein-calorie nutrition with an albumin of 1.5. RECOMMENDATIONS: Agree with sepsis protocol, vasopressors to keep systolic greater than 90 mmHg or mean arterial pressure around 60. We will keep O2 saturation 90% above. Suspect her pulmonary status will be impaired given sepsis. DVT and GI prophylaxis will be addressed. Suspect her condition will worsen before she is stabilized and improves. She will be monitored closely in the ICU. [facility] [address] [place] [address] CONSULTATION Name: TOY BAKER Room #: 217-P ADM IN M.R.#: [id number] Admission: 01/30/17 Attend Phys: Yovani De Los Santos MD Discharge: Date of : 54 Report #: [id number] Thank you for the consultation. <ELECTRONICALLY SIGNED> By: Leeroy Felder MD 02/05/17 1706 1615 02 Leeroy Felder MD /nt
--- NOTE | ~2017-01-30 | EKG ---
[address] 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: rneee : 1950 Requested By: Adrian Rasheed Order Number: [id number] MD: Audie Smith Measurements Intervals [place] Rate: 124 P: 8 DE: 158 QRS: -72 QRSD: 101 T: 90 QT: 331 QTc: 476 Interpretive Statements Sinus tachycardia Paired ventricular premature complexes LAD, consider LAFB or inferior infarct Poor R wave progression Compared to ECG 01/31/2017 02:10:47 Ventricular premature complex(es) now present Electronically Signed On 02-07-2017 7:46:36 CDT by Audie Smith [email or web address] <ELECTRONICALLY SIGNED> By: Audie Smith MD, [facility] 02/07/17 0746 1305 1305 Audie Smith MD, [facility] /EPI
[~2017-01-30 10:30] MED LIST changes: +ENOXAPARIN30 MG/0.1 SUBQ
[2017-01-30] MEDS ORDERED: ASPIR 8181 MG PO (11:23)
[2017-01-30] MEDS ORDERED: MIDODRINE HCL 55 M1 PO (11:24)
[2017-01-30] MEDS ORDERED: NEPHRO-VITE RX1 TA1 PO (11:24)
[2017-01-30] MEDS ORDERED: SENSIPAR 30 MG30 M1 PO (11:25)
[2017-01-30] MEDS ORDERED: SERTRALINE HCL50 MG PO (11:25)
[2017-01-30] MEDS ORDERED: ZOFRAN ODT4 MG DISSOLVE (11:25)
[2017-01-30 13:50] LABS: HEMATOCRIT 30.6 % (37.0-47.0); HEMOGLOBIN 9.8 gm/dL (12.0-15.0); MCH 32.8 pg (26.0-34.0); MCHC 31.9 g/dL (28.0-37.0); MCV 102.9 fL (80.0-100.0); PLATELET COUNT 109 thou/uL (150-400); RBC 2.98 mil/uL (4.20-5.00); RDW 17.7 % (10.5-14.5); WBC 14.4 thou/uL (4.0-11.0)
[2017-01-30 13:56] LABS: MANUAL DIFF YES
[2017-01-30 14:01] LABS: CALCIUM 9.7 mg/dL (8.5-10.1); CREATININE 10.2 mg/dL (0.6-1.0); POTASSIUM 4.9 mmol/L (3.5-5.1)
[2017-01-30 14:22] LABS: ABSOLUTE NEUTROPHILS 11.8 thou/uL (1.4-8.2); TOTAL CELL COUNT 100
[2017-01-30 14:23] LABS: ANISOCYTOSIS 1+; MACROCYTES 1+; PLATELET ESTIMATE DECREASED
[2017-01-30] MEDS ORDERED: PEPCID20 MG PO (22:39)
[2017-01-31] VITALS (45 sets, daily range): BP systolic 61–206; BP diastolic 42–172
[2017-01-31 06:11] LABS: HEMATOCRIT 28.9 % (37.0-47.0); HEMOGLOBIN 9.1 gm/dL (12.0-15.0); MCH 32.7 pg (26.0-34.0); MCHC 31.5 g/dL (28.0-37.0); MCV 103.6 fL (80.0-100.0); RBC 2.79 mil/uL (4.20-5.00); RDW 18.1 % (10.5-14.5); WBC 14.1 thou/uL (4.0-11.0)
[2017-01-31 06:25] LABS: POTASSIUM 4.3 mmol/L (3.5-5.1)
[2017-01-31 06:27] LABS: CREATININE 4.8 mg/dL (0.6-1.0)
[2017-01-31 14:03] LABS: ABG SAMPLE TYPE ARTERIAL; BE(vivo) -0.7 mmol/L (-2 to +3); HCO3 23.7 mmol/L (22.0-26.0); LACTATE 1.58 mmol/L (0.5-2.0); O2(CT) 16.4 mL/dL (15.0-23.0); O2Hb 92.6 % (92.0-98.0); PCO2 38.2 mmHg (35.0-45.0); PO2 72.2 mmHg (80.0-100.0); sO2 94.7 % (92.0-98.0); tCO2 24.8 mmol/L (24.0-30.0)
[2017-01-31 14:04] LABS: STICK SITE L.RADIAL
[2017-01-31 15:24] LABS: ABG SAMPLE TYPE VENOUS; BE(vivo) -1.4 mmol/L (-2 to +3); HCO3 23.4 mmol/L (22.0-26.0); LACTATE 1.26 mmol/L (0.5-2.0); PCO2 VENOUS 39.6 mmHg (41.0-51.0); sO2 VENOUS 54.5 % (65.0-85.0); tCO2 24.6 mmol/L (24.0-30.0)
[2017-01-31 15:25] LABS: O2Hb VENOUS 49.9 (65.0-85.0); STICK SITE LINE
[2017-01-31 15:25] LABS: HEMATOCRIT 27.1 % (37.0-47.0); HEMOGLOBIN 8.4 gm/dL (12.0-15.0); MCH 32.1 pg (26.0-34.0); MCV 103.4 fL (80.0-100.0); RBC 2.62 mil/uL (4.20-5.00); RDW 17.7 % (10.5-14.5); WBC 11.3 thou/uL (4.0-11.0)
[2017-01-31 15:26] LABS: MANUAL DIFF YES
[2017-01-31 15:30] LABS: CALCIUM 8.8 mg/dL (8.5-10.1); CREATININE 5.4 mg/dL (0.6-1.0); POTASSIUM 3.7 mmol/L (3.5-5.1)
[2017-01-31 15:35] LABS: ALBUMIN 1.9 g/dL (3.4-5.0); TOTAL BILIRUBIN 0.4 mg/dL (<0.1-1.0); TOTAL PROTEIN 6.1 g/dL (6.4-8.2)
[2017-01-31 16:00] LABS: ABSOLUTE NEUTROPHILS 9.4 thou/uL (1.4-8.2); ANISOCYTOSIS 1+; MACROCYTES 1+; TOTAL CELL COUNT 100
[2017-01-31 16:01] LABS: PLATELET COUNT 85 thou/uL (150-400)
[2017-01-31 16:02] LABS: INR 1.1; PROTIME 10.9 Seconds (9.3-11.4)
[2017-01-31 17:05] LABS: ABG SAMPLE TYPE VENOUS; BE(vivo) -1.1 mmol/L (-2 to +3); HCO3 23.9 mmol/L (22.0-26.0); LACTATE 1.28 mmol/L (0.5-2.0); O2(CT) 6.5 mL/dL (15.0-23.0); PCO2 VENOUS 40.6 mmHg (41.0-51.0); PO2 VENOUS 28.1 mmHg (35.0-45.0); sO2 VENOUS 52.1 % (65.0-85.0); tCO2 25.1 mmol/L (24.0-30.0)
[2017-01-31 17:06] LABS: ABG COMMENT #3; O2Hb VENOUS 47.2 (65.0-85.0); STICK SITE LINE
[2017-01-31 18:22] LABS: CALCIUM 8.7 mg/dL (8.5-10.1); CREATININE 5.7 mg/dL (0.6-1.0); POTASSIUM 3.8 mmol/L (3.5-5.1)
[2017-01-31 18:29] LABS: APTT 29.8 Seconds (24.5-32.8); FIBRINOGEN 484.5 mg/dL (210-360); INR 1.1
[2017-02-01] VITALS (39 sets, daily range): BP systolic 72–102; BP diastolic 42–70
[2017-02-01 06:41] LABS: ABSOLUTE NEUTROPHILS 8.1 thou/uL (1.4-8.2); BASOPHILS 0.4 % (0.0-2.0); EOSINOPHILS 0.4 % (0.0-3.0); HEMATOCRIT 26.5 % (37.0-47.0); HEMOGLOBIN 8.4 gm/dL (12.0-15.0); LYMPHOCYTES 12.3 % (24.0-44.0); MCH 32.6 pg (26.0-34.0); MCHC 31.7 g/dL (28.0-37.0); MONOCYTES 8.7 % (1.0-8.0); PLATELET COUNT 92 thou/uL (150-400); POLYS 78.2 % (36.0-66.0); RBC 2.57 mil/uL (4.20-5.00); RDW 17.6 % (10.5-14.5); WBC 10.4 thou/uL (4.0-11.0)
[2017-02-01 06:42] LABS: MANUAL DIFF NO
[2017-02-01 06:55] LABS: CALCIUM 9.1 mg/dL (8.5-10.1); CREATININE 6.2 mg/dL (0.6-1.0); MAGNESIUM 1.8 mg/dL (1.8-2.4); PHOSPHORUS 3.6 mg/dL (2.5-4.9); POTASSIUM 3.9 mmol/L (3.5-5.1); TOTAL BILIRUBIN 0.4 mg/dL (<0.1-1.0)
[2017-02-01 11:10] LABS: ABSOLUTE NEUTROPHILS 8.8 thou/uL (1.4-8.2); BASOPHILS 0.3 % (0.0-2.0); EOSINOPHILS 0.5 % (0.0-3.0); HEMOGLOBIN 8.4 gm/dL (12.0-15.0); LYMPHOCYTES 11.4 % (24.0-44.0); MCH 33.1 pg (26.0-34.0); MCHC 32.2 g/dL (28.0-37.0); MCV 102.8 fL (80.0-100.0); MONOCYTES 8.8 % (1.0-8.0); RBC 2.53 mil/uL (4.20-5.00); RDW 17.9 % (10.5-14.5); WBC 11.1 thou/uL (4.0-11.0)
[2017-02-01 11:13] LABS: MANUAL DIFF NO; PLATELET COUNT 99 thou/uL (150-400)
[2017-02-02] VITALS (72 sets, daily range): BP systolic 46–210; BP diastolic 17–191
[2017-02-02 06:03] LABS: ABSOLUTE NEUTROPHILS 8.2 thou/uL (1.4-8.2); BASOPHILS 0.6 % (0.0-2.0); EOSINOPHILS 0.6 % (0.0-3.0); HEMATOCRIT 25.2 % (37.0-47.0); HEMOGLOBIN 8.2 gm/dL (12.0-15.0); LYMPHOCYTES 11.7 % (24.0-44.0); MCH 33.3 pg (26.0-34.0); MCHC 32.5 g/dL (28.0-37.0); MCV 102.4 fL (80.0-100.0); MONOCYTES 8.8 % (1.0-8.0); PLATELET COUNT 105 thou/uL (150-400); POLYS 78.3 % (36.0-66.0); RBC 2.46 mil/uL (4.20-5.00); RDW 17.4 % (10.5-14.5); WBC 10.5 thou/uL (4.0-11.0)
[2017-02-02 06:09] LABS: MANUAL DIFF NO
[2017-02-02 06:13] LABS: ALBUMIN 1.8 g/dL (3.4-5.0); CREATININE 6.7 mg/dL (0.6-1.0); MAGNESIUM 1.8 mg/dL (1.8-2.4); PHOSPHORUS 3.4 mg/dL (2.5-4.9); POTASSIUM 3.6 mmol/L (3.5-5.1)
[2017-02-02 13:44] LABS: ABSOLUTE NEUTROPHILS 8.1 thou/uL (1.4-8.2); BASOPHILS 0.5 % (0.0-2.0); EOSINOPHILS 0.5 % (0.0-3.0); HEMATOCRIT 25.9 % (37.0-47.0); HEMOGLOBIN 8.2 gm/dL (12.0-15.0); LYMPHOCYTES 12.5 % (24.0-44.0); MCH 32.4 pg (26.0-34.0); MCHC 31.8 g/dL (28.0-37.0); MONOCYTES 7.8 % (1.0-8.0); PLATELET COUNT 107 thou/uL (150-400); POLYS 78.7 % (36.0-66.0); RBC 2.54 mil/uL (4.20-5.00); RDW 17.7 % (10.5-14.5); WBC 10.3 thou/uL (4.0-11.0)
[2017-02-02 13:45] LABS: MANUAL DIFF NO
[2017-02-03] VITALS (7 sets, daily range): BP systolic 83–126; BP diastolic 40–62
[2017-02-03 05:54] LABS: ABG SAMPLE TYPE ARTERIAL; BE(vivo) 1.6 mmol/L (-2 to +3); HCO3 26.5 mmol/L (22.0-26.0); LACTATE 1.04 mmol/L (0.5-2.0); O2(CT) 14.2 mL/dL (15.0-23.0); O2Hb 94.8 % (92.0-98.0); PO2 83.3 mmHg (80.0-100.0); STICK SITE R.RADIAL; pH 7.408 (7.360-7.450); sO2 96.3 % (92.0-98.0); tCO2 27.8 mmol/L (24.0-30.0)
[2017-02-03 07:44] LABS: ALBUMIN 1.8 g/dL (3.4-5.0); CALCIUM 8.8 mg/dL (8.5-10.1); PHOSPHORUS 2.9 mg/dL (2.5-4.9); POTASSIUM 3.6 mmol/L (3.5-5.1)
[2017-02-03 07:45] LABS: CREATININE 3.7 mg/dL (0.6-1.0)
[2017-02-04 03:58] VITALS: BP 85/55
[2017-02-04 07:51] VITALS: BP 76/52
[2017-02-04 11:43] VITALS: BP 107/82
[2017-02-04 16:02] VITALS: BP 94/43
[2017-02-04 19:35] VITALS: BP 121/52
[2017-02-05 05:07] VITALS: BP 86/67
[2017-02-05 06:01] LABS: ALBUMIN 1.8 g/dL (3.4-5.0); CALCIUM 9.2 mg/dL (8.5-10.1); PHOSPHORUS 4.5 mg/dL (2.5-4.9); POTASSIUM 3.5 mmol/L (3.5-5.1)
[2017-02-05 06:05] LABS: CREATININE 5.4 mg/dL (0.6-1.0)
[2017-02-05 08:50] VITALS: BP 128/75
[2017-02-05 13:02] VITALS: BP 88/54
[2017-02-05 20:39] VITALS: BP 106/68
[2017-02-05 23:34] VITALS: BP 78/51
[2017-02-06] VITALS (18 sets, daily range): BP systolic 64–155; BP diastolic 22–117
[2017-02-06 05:02] LABS: ABSOLUTE NEUTROPHILS 11.4 thou/uL (1.4-8.2); BASOPHILS 0.7 % (0.0-2.0); EOSINOPHILS 0.2 % (0.0-3.0); HEMATOCRIT 25.2 % (37.0-47.0); HEMOGLOBIN 7.9 gm/dL (12.0-15.0); LYMPHOCYTES 11.2 % (24.0-44.0); MCH 32.4 pg (26.0-34.0); MCHC 31.5 g/dL (28.0-37.0); MONOCYTES 7.1 % (1.0-8.0); PLATELET COUNT 165 thou/uL (150-400); POLYS 80.8 % (36.0-66.0); RBC 2.45 mil/uL (4.20-5.00); RDW 17.5 % (10.5-14.5); WBC 14.1 thou/uL (4.0-11.0)
[2017-02-06 05:08] LABS: MANUAL DIFF NO
[2017-02-06 12:13] LABS: ABG SAMPLE TYPE ARTERIAL; BE(vivo) -6.2 mmol/L (-2 to +3); HCO3 19.5 mmol/L (22.0-26.0); LACTATE 6.95 mmol/L (0.5-2.0); O2(CT) 10.7 mL/dL (15.0-23.0); O2Hb 97.7 % (92.0-98.0); PO2 133.2 mmHg (80.0-100.0); pH 7.316 (7.360-7.450); sO2 98.4 % (92.0-98.0); tCO2 20.7 mmol/L (24.0-30.0)
[2017-02-06 12:14] LABS: STICK SITE LINE
[2017-02-06 12:15] LABS: HEMATOCRIT 22.1 % (37.0-47.0); HEMOGLOBIN 6.8 gm/dL (12.0-15.0); MCH 32.2 pg (26.0-34.0)
[2017-02-06 12:15] LABS: ABG COMMENT IN OR ROOM 6
[2017-02-06 12:16] LABS: MCHC 30.5 g/dL (28.0-37.0); MCV 105.6 fL (80.0-100.0); RBC 2.09 mil/uL (4.20-5.00); RDW 17.6 % (10.5-14.5); WBC 20.5 thou/uL (4.0-11.0)
[2017-02-06 13:20] LABS: ABG SAMPLE TYPE ARTERIAL; BE(vivo) -10.2 mmol/L (-2 to +3); HCO3 15.7 mmol/L (22.0-26.0); LACTATE 5.96 mmol/L (0.5-2.0); O2(CT) 12.9 mL/dL (15.0-23.0); O2Hb 96.3 % (92.0-98.0); PCO2 34.7 mmHg (35.0-45.0); PO2 103.2 mmHg (80.0-100.0); Pressure Support 6 cm H20; STICK SITE LINE; pH 7.274 (7.360-7.450); sO2 97.1 % (92.0-98.0); tCO2 16.8 mmol/L (24.0-30.0)
[2017-02-06 13:22] LABS: HEMATOCRIT 26.9 % (37.0-47.0); HEMOGLOBIN 8.6 gm/dL (12.0-15.0); MCH 32.4 pg (26.0-34.0); MCHC 31.9 g/dL (28.0-37.0); MCV 101.6 fL (80.0-100.0); RBC 2.65 mil/uL (4.20-5.00); RDW 17.5 % (10.5-14.5); WBC 18.9 thou/uL (4.0-11.0)
[2017-02-06 13:22] LABS: ABG COMMENT CPAP TRIAL IN RCY
[2017-02-06 13:33] LABS: CALCIUM 8.9 mg/dL (8.5-10.1); POTASSIUM 3.9 mmol/L (3.5-5.1)
[2017-02-06 13:34] LABS: CREATININE 3.9 mg/dL (0.6-1.0)
[2017-02-07] VITALS (32 sets, daily range): BP systolic 73–124; BP diastolic 19–91
[2017-02-07 04:36] LABS: ABG SAMPLE TYPE ARTERIAL; BE(vivo) -8.3 mmol/L (-2 to +3); HCO3 14.8 mmol/L (22.0-26.0); LACTATE 1.16 mmol/L (0.5-2.0); O2(CT) 9.2 mL/dL (15.0-23.0); O2Hb 97.4 % (92.0-98.0); PO2 176.8 mmHg (80.0-100.0); pH 7.449 (7.360-7.450); sO2 99.3 % (92.0-98.0); tCO2 15.5 mmol/L (24.0-30.0)
[2017-02-07 04:37] LABS: PCO2 21.9 mmHg (35.0-45.0); STICK SITE LINE; TIDAL VOLUME 600 ml
[2017-02-07 05:54] LABS: HEMATOCRIT 26.9 % (37.0-47.0); HEMOGLOBIN 8.7 gm/dL (12.0-15.0); MCH 32.1 pg (26.0-34.0); MCHC 32.2 g/dL (28.0-37.0); MCV 99.6 fL (80.0-100.0); RBC 2.7 mil/uL (4.20-5.00); RDW 17.7 % (10.5-14.5); WBC 27.5 thou/uL (4.0-11.0)
[2017-02-07 06:14] LABS: POTASSIUM 2.9 mmol/L (3.5-5.1)
[2017-02-07 07:34] LABS: ALBUMIN 1.7 g/dL (3.4-5.0); CALCIUM 8.2 mg/dL (8.5-10.1); CREATININE 4.1 mg/dL (0.6-1.0); PHOSPHORUS 2.8 mg/dL (2.5-4.9)
[2017-02-08] VITALS (21 sets, daily range): BP systolic 70–134; BP diastolic 27–80
[2017-02-08 05:12] LABS: HEMATOCRIT 23.8 % (37.0-47.0); HEMOGLOBIN 7.5 gm/dL (12.0-15.0); MCH 31.9 pg (26.0-34.0); MCHC 31.6 g/dL (28.0-37.0); MCV 100.8 fL (80.0-100.0); PLATELET COUNT 154 thou/uL (150-400); RBC 2.37 mil/uL (4.20-5.00); RDW 17.9 % (10.5-14.5); WBC 25.5 thou/uL (4.0-11.0)
[2017-02-08 05:23] LABS: ALBUMIN 1.5 g/dL (3.4-5.0); CALCIUM 8.5 mg/dL (8.5-10.1); CREATININE 4.3 mg/dL (0.6-1.0); TOTAL BILIRUBIN 0.3 mg/dL (<0.1-1.0); TOTAL PROTEIN 4.9 g/dL (6.4-8.2)
[2017-02-08 05:26] LABS: MANUAL DIFF YES
[2017-02-08 05:43] LABS: ABG SAMPLE TYPE ARTERIAL; BE(vivo) -11.9 mmol/L (-2 to +3); HCO3 12.7 mmol/L (22.0-26.0); LACTATE 1.62 mmol/L (0.5-2.0); O2Hb 95.9 % (92.0-98.0); PO2 98.2 mmHg (80.0-100.0); pH 7.348 (7.360-7.450); sO2 97.3 % (92.0-98.0); tCO2 13.4 mmol/L (24.0-30.0)
[2017-02-08 05:44] LABS: PCO2 23.6 mmHg (35.0-45.0); STICK SITE LINE; TIDAL VOLUME 500 ml
[2017-02-08 08:37] LABS: ABSOLUTE NEUTROPHILS 21.9 thou/uL (1.4-8.2); ANISOCYTOSIS 1+; MACROCYTES 1+; PLATELET ESTIMATE NORMAL; TOTAL CELL COUNT 100
[2017-02-09] VITALS (51 sets, daily range): BP systolic 70–110; BP diastolic 41–98
[2017-02-09 07:00] LABS: RDW 16.8 % (10.5-14.5)
[2017-02-09 07:02] LABS: MCH 32.2 pg (26.0-34.0); MCHC 32.9 g/dL (28.0-37.0); MCV 97.7 fL (80.0-100.0); RBC 1.97 mil/uL (4.20-5.00); WBC 17.1 thou/uL (4.0-11.0)
[2017-02-09 07:08] LABS: HEMATOCRIT 19.3 % (37.0-47.0); HEMOGLOBIN 6.3 gm/dL (12.0-15.0)
[2017-02-09 07:29] LABS: CALCIUM 7.9 mg/dL (8.5-10.1); CREATININE 2.3 mg/dL (0.6-1.0)
[2017-02-10] VITALS (25 sets, daily range): BP systolic 87–110; BP diastolic 21–73
[2017-02-10 05:13] LABS: HEMATOCRIT 26.4 % (37.0-47.0); MCH 32.2 pg (26.0-34.0); MCHC 33.8 g/dL (28.0-37.0); MCV 95.3 fL (80.0-100.0); RBC 2.77 mil/uL (4.20-5.00); RDW 16.4 % (10.5-14.5); WBC 15.5 thou/uL (4.0-11.0)
[2017-02-10 05:14] LABS: HEMOGLOBIN 8.9 gm/dL (12.0-15.0)
[2017-02-10 05:39] LABS: ABG SAMPLE TYPE ARTERIAL; BE(vivo) 1.1 mmol/L (-2 to +3); HCO3 24.6 mmol/L (22.0-26.0); LACTATE 1.18 mmol/L (0.5-2.0); O2(CT) 13.8 mL/dL (15.0-23.0); O2Hb 97.2 % (92.0-98.0); PCO2 34.6 mmHg (35.0-45.0); PO2 105.9 mmHg (80.0-100.0); STICK SITE LINE; TIDAL VOLUME 500 ml; pH 7.469 (7.360-7.450); sO2 98.2 % (92.0-98.0); tCO2 25.6 mmol/L (24.0-30.0)
[2017-02-10 05:40] LABS: ABG COMMENT AC16 500 +5 35%
[2017-02-10 06:28] LABS: ALBUMIN 1.3 g/dL (3.4-5.0); DIRECT BILIRUBIN 0.1 mg/dL (<0.1-0.3); TOTAL BILIRUBIN 0.4 mg/dL (<0.1-1.0); TOTAL PROTEIN 4.6 g/dL (6.4-8.2)
[2017-02-11] VITALS (51 sets, daily range): BP systolic 63–133; BP diastolic 15–96
[2017-02-11 05:47] LABS: HEMATOCRIT 26.3 % (37.0-47.0); HEMOGLOBIN 8.7 gm/dL (12.0-15.0); MCH 31.6 pg (26.0-34.0); MCHC 33.2 g/dL (28.0-37.0); MCV 95.1 fL (80.0-100.0); RBC 2.77 mil/uL (4.20-5.00); RDW 16.5 % (10.5-14.5); WBC 14.4 thou/uL (4.0-11.0)
[2017-02-11 05:54] LABS: CALCIUM 7.9 mg/dL (8.5-10.1); CREATININE 3.6 mg/dL (0.6-1.0); POTASSIUM 3.7 mmol/L (3.5-5.1)
[2017-02-12] VITALS (29 sets, daily range): BP systolic 71–114; BP diastolic 27–83
[2017-02-12 05:40] LABS: HEMATOCRIT 24.3 % (37.0-47.0); HEMOGLOBIN 8.3 gm/dL (12.0-15.0); MCH 32.3 pg (26.0-34.0); MCHC 34.2 g/dL (28.0-37.0); MCV 94.7 fL (80.0-100.0); RBC 2.57 mil/uL (4.20-5.00); WBC 12.9 thou/uL (4.0-11.0)
[2017-02-12 05:49] LABS: ALBUMIN 1.2 g/dL (3.4-5.0); CALCIUM 7.7 mg/dL (8.5-10.1); PHOSPHORUS 2.2 mg/dL (2.5-4.9); POTASSIUM 3.4 mmol/L (3.5-5.1)
[2017-02-12 05:51] LABS: CREATININE 2.3 mg/dL (0.6-1.0)
[2017-02-12 14:17] LABS: ABG SAMPLE TYPE ARTERIAL; HCO3 26.8 mmol/L (22.0-26.0); LACTATE 1.33 mmol/L (0.5-2.0); O2(CT) 12.9 mL/dL (15.0-23.0); O2Hb 97.2 % (92.0-98.0); PCO2 37.7 mmHg (35.0-45.0); PO2 116.8 mmHg (80.0-100.0); pH 7.469 (7.360-7.450); sO2 98.5 % (92.0-98.0); tCO2 27.9 mmol/L (24.0-30.0)
[2017-02-12 14:18] LABS: ABG COMMENT CPAP TRIAL; Pressure Support 6 cm H20; STICK SITE R.RADIAL
[2017-02-13] VITALS (57 sets, daily range): BP systolic 62–123; BP diastolic 38–78
[2017-02-13 07:59] LABS: HEMATOCRIT 22.3 % (37.0-47.0); HEMOGLOBIN 7.7 gm/dL (12.0-15.0); MCH 32.9 pg (26.0-34.0); MCHC 34.4 g/dL (28.0-37.0); MCV 95.6 fL (80.0-100.0); RBC 2.33 mil/uL (4.20-5.00); RDW 15.9 % (10.5-14.5)
[2017-02-13 08:09] LABS: ALBUMIN 1.1 g/dL (3.4-5.0); CALCIUM 7.9 mg/dL (8.5-10.1); CREATININE 2.7 mg/dL (0.6-1.0); PHOSPHORUS 2.7 mg/dL (2.5-4.9); POTASSIUM 3.1 mmol/L (3.5-5.1)
[2017-02-14] VITALS (35 sets, daily range): BP systolic 57–109; BP diastolic 10–81
[2017-02-14] MEDS ORDERED: ZOSYN 2.25 GR2.25 GM IV ×2 (09:45→09:46)
[2017-02-14] MEDS ORDERED: VANCO 1 GR1 GM/250 M IVPB (09:47)
[2017-02-14] MEDS ORDERED: MIDODRINE HCL 55 M1 PO (09:47)
[2017-02-14] MEDS ORDERED: ENOXAPARIN30 MG/0.1 SUBQ (09:48)
[2017-02-14] MEDS ORDERED: HYDROCODONE-AP1 EAC6 PO (09:49)
== END 2017-02-14 20:06 | DRG 853 ==
LOC: ER 10:30 → EROBS 13:39 → ICU 13:39 → 4S 13:39 → ICU 01-31 13:29 → 2N 02-03 00:58 → ICU 02-06 14:20
PROVIDERS: Anesthesiology; Emergency Medicine; Internal Medicine Geriatric Medicine; Internal Medicine Nephrology; Internal Medicine Pulmonary Disease; Orthopaedic Surgery Sports Medicine; Specialist
PROC: 5A1D60Z (ICD-10-PCS; 2017-01-30)
PROC: 02H633Z Insertion of Infusion Device into Right Atrium, Percutaneous Approach (ICD-10-PCS; 2017-01-30)
PROC: 0Y670ZZ Detachment at Right Femoral Region, Open Approach (ICD-10-PCS; principal; 2017-02-06)
PROC: 0BH17EZ Insertion of Endotracheal Airway into Trachea, Via Natural or Artificial Opening (ICD-10-PCS; 2017-02-06)
PROC: 5A1955Z Respiratory Ventilation, Greater than 96 Consecutive Hours (ICD-10-PCS; 2017-02-06)
PROC: 30243N1 Transfusion of Nonautologous Red Blood Cells into Central Vein, Percutaneous Approach (ICD-10-PCS; 2017-02-06)
DX: A41.9 Sepsis, unspecified organism (principal); N18.6 End stage renal disease; G93.40 Encephalopathy, unspecified; R65.21 Severe sepsis with septic shock; J96.01 Acute respiratory failure with hypoxia; J18.9 Pneumonia, unspecified organism; L89.153 Pressure ulcer of sacral region, stage 3; L89.323 Pressure ulcer of left buttock, stage 3; I69.351 Hemiplegia and hemiparesis following cerebral infarction affecting right dominant side; N39.0 Urinary tract infection, site not specified; E11.52 Type 2 diabetes mellitus with diabetic peripheral angiopathy with gangrene; J98.11 Atelectasis; K56.7 Ileus, unspecified; E11.22 Type 2 diabetes mellitus with diabetic chronic kidney disease; D63.8 Anemia in other chronic diseases classified elsewhere; G40.909 Epilepsy, unspecified, not intractable, without status epilepticus; E87.6 Hypokalemia; Z88.8 Allergy status to other drugs, medicaments and biological substances; Z99.2 Dependence on renal dialysis; Z93.3 Colostomy status
CPT/HCPCS: 10078; 10081; 10100; 27000; 32100; 32110; 50010; 50011; 50101; 50386; 51412; 53000; 56524; 56526; 56528; 57091; 62110; 62900; 70005